=== PATIENT | male | born 1960 | race Caucasian/White ===

== ENCOUNTER → 2023-07-03 | Outpatient (CLI) | payer MEDICARE ==
--- NOTE | 2023-07-03 21:54 | CTL ---
EXAMINATION TYPE: CT Low Dose Lung DATE OF EXAM ORDERED: 07/03/2023 HISTORY: Tobacco use. Lung cancer screening CT DLP: 70 mGycm Automated exposure control for dose reduction was used. SCREENING VISIT: Initial COMPARISON: None TECHNIQUE: Low dose computed tomography scan was performed through the chest at 1 mm thick sections a nd reconstructed images in the coronal plane at [address] DIAGNOSTIC QUALITY: Satisfactory FINDINGS: LUNG NODULES: None. LUNGS: COPD: Severity: None Fibrosis: Severity: None Lymph nodes: None Other findings: None RIGHT PLEURAL SPACE: Effusion: None Calcification: None Thickening: None Pneumothorax: None LEFT PLEURAL SPACE: Effusion: None Calcification: None Thickening: None Pneumothorax: None HEART: Heart Size: Normal Coronary calcification: None Pericardial effusion: None OTHER FINDINGS: Upper abdomen: Normal Bony thorax: Normal Supraclavicular region: Normal Other: None IMPRESSION: 1. No suspicious primary or metastatic neoplasm FOLLOW UP CT CHEST RECOMMENDATION: Follow-up low-dose CT chest [address] LUNG RAD: Lung-Rad 1 Negative
== END | disposition home or self-care (01) ==
LOC: RADCTMAIN 08:46
PROVIDERS: ATTEND Internal Medicine Critical Care Medicine
DX: Z12.2 Encounter for screening for malignant neoplasm of respiratory organs (principal); F17.210 Nicotine dependence, cigarettes, uncomplicated
CPT/HCPCS: 71271

== ENCOUNTER 2023-08-27 01:20 | Inpatient (IN) | payer MEDICARE ==
[2023-08-27] MEDS: MAGNESIUM SULFATE-D5W PMX 1 GM in DEXTROSE/WATER 1 100ML.BAG IVPB STA (01:44)
[2023-08-27 01:49] LABS: Basophils # (A) 0.1 k/uL (0-0.2); Basophils % (A) 0 %; Eosinophils # (A) 0.1 k/uL (0-0.7); Eosinophils % (A) 1 %; HCT 50.8 % (39.0-53.0); Lymphocytes # (A) 2.5 k/uL (1.0-4.8); Lymphocytes % (A) 15 %; MCH 30.3 pg (25.0-35.0); MCHC 31.6 g/dL (31.0-37.0); MCV 96.1 fL (80.0-100.0); Mean Platelet Volume 9.5; Monocytes # (A) 1.2 k/uL (0-1.0); Monocytes % (A) 7 %; Neutrophils # (A) 12.8 k/uL (1.3-7.7); Neutrophils % (A) 75 %; Platelet Count 185 k/uL (150-450); RBC 5.29 m/uL (4.30-5.90); RDW 13.4 % (11.5-15.5); WBC 17.1 k/uL (3.8-10.6)
[2023-08-27] MEDS: IPRATROPIUM-ALBUTEROL 3 ML NEB INHALATION STA (01:49)
--- NOTE | 2023-08-27 01:50 | ED ---
SOB HPI - General Chief Complaint: Shortness of Breath Stated Complaint: CARMELO Time Seen by Provider: 08/27/23 01:25 Source: patient Mode of arrival: EMS Limitations: no limitations - History of Present Illness Initial Comments: 63-year-old male with past medical history of COPD who presents to the emergency department reporting shortness of breath. Patient states for the past 3 days he has been short of breath. He has been trying to tough it out. He did call his collar closer lockstitch and was placed on 40 mg of prednisone daily to help combat his symptoms. Reports that despite these efforts he still is short of breath. He denies any chest pain but does admit to tightness. Admits to a cough without sputum production. No fevers or chills. No lower extremity swelling. No history of DVT or PE. EMS found the patient with significantly diminished lung sounds and therefore placed him on a CPAP. The gave him a DuoNeb's breathing treatment and 125 mg Solu-Medrol. No other alleviating, precipitating modifying factors - Related Data Home Medications Medication Instructions Recorded Confirmed Albuterol Inhaler [Ventolin Hfa 1 puff INHALATION RT-Q4H PRN 08/27/23 08/27/23 Inhaler] Albuterol Nebulized [Ventolin 2.5 mg INHALATION RT-Q4H PRN 08/27/23 08/27/23 Nebulized] Empagliflozin [Jardiance] 10 mg PO DAILY 08/27/23 08/27/23 Ergocalciferol [Vitamin D2 (1250 1,250 mcg PO TU 08/27/23 08/27/23 Mcg = 23196 Iu)] Fluticasone/Umeclidin/Vilanter 1 puff INHALATION RT-DAILY 08/27/23 08/27/23 [Trelegy Ellipta 200-62.5-25] Ibuprofen [Motrin Ib] 200 - 400 mg PO Q6H PRN 08/27/23 08/27/23 ramipriL [Altace] 1.25 mg PO HS 08/27/23 08/27/23 Allergies Allergy/AdvReac Type Severity Reaction Status Date / Time cephalexin [From Keflex] Allergy Rash/Hives Verified 08/27/23 08:12 Review of Systems ROS Statement: Those systems with pertinent positive or pertinent negative responses have been documented in the HPI. ROS Other: All systems not noted in ROS Statement are negative. Past Medical History History of Any Multi-Drug Resistant Organisms: None Reported Past Psychological History: No Psychological Hx Reported Smoking Status: Current some day smoker Past Alcohol Use History: Rare Past Drug Use History: None Reported General Exam Limitations: no limitations General appearance: alert, in distress Head exam: Present: atraumatic, normocephalic, normal inspection Eye exam: Present: normal appearance, PERRL, EOMI. Absent: scleral icterus, conjunctival injection, periorbital swelling ENT exam: Present: normal exam, mucous membranes moist Neck exam: Present: normal inspection. Absent: tenderness, meningismus, lymphadenopathy Respiratory exam: Present: respiratory distress, wheezes, accessory muscle use, decreased breath sounds. Absent: rales, rhonchi, stridor Cardiovascular Exam: Present: normal rhythm, tachycardia, normal heart sounds. Absent: systolic murmur, diastolic murmur, rubs, gallop, clicks GI/Abdominal exam: Present: soft, normal bowel sounds. Absent: distended, tenderness, guarding, rebound, rigid Extremities exam: Present: normal inspection, full ROM, normal capillary refill. Absent: tenderness, pedal edema, joint swelling, calf tenderness Back exam: Present: normal inspection Neurological exam: Present: alert, oriented X3, CN II-XII intact Psychiatric exam: Present: normal affect, normal mood Skin exam: Present: warm, dry, intact, normal color. Absent: rash Course Vital Signs 08/27/23 08/27/23 08/27/23 01:23 01:39 01:57 Temperature 98.9 F Pulse Rate 107 H 110 H 104 H Pulse Rate [ Pulse Oximetery ] Respiratory 28 H Rate Blood Pressure 137/88 Blood Pressure [Right Arm] O2 Sat by Pulse 100 Oximetry Fraction of 40 Inspired Oxygen (FIO2) 08/27/23 08/27/23 08/27/23 03:10 03:25 04:00 Temperature 97.9 F Pulse Rate 96 93 Pulse Rate [ 86 Pulse Oximetery ] Respiratory 17 20 25 H Rate Blood Pressure 125/80 118/71 Blood Pressure 124/77 [Right Arm] O2 Sat by Pulse 98 94 L Oximetry Fraction of 40 Inspired Oxygen (FIO2) Medical Decision Making - Medical Decision Making Was pt. sent in by a medical professional or institution (, PA, DOG RACES MANAGER, urgent care, hospital, or fci...) When possible be specific @ -No Did you speak to anyone other than the patient for history (EMS, parent, family, police, friend...)? What history was obtained from this source @ -Spoke with EMS for history Did you review nursing and triage notes (agree or disagree)? Why? @ -I reviewed and agree with nursing and triage notes Were old charts reviewed (outside hosp., previous admission, EMS record, old E KG, old radiological studies, urgent care reports/EKG's, fci records)? Report findings @ -No old charts were reviewed Differential Diagnosis (chest pain, altered mental status, abdominal pain women, abdominal pain men, vaginal bleeding, weakness, fever, dyspnea, syncope, headache, dizziness, GI bleed, back pain, seizure, CVA, palpatations, mental health, musculoskeletal)? @ -Differential Dyspnea: Coronary syndrome, arrhythmia, tamponade, asthma, COPD, pulmonary embolism, pneumonia, pneumothorax, pulmonary effusion, anaphylaxis, diabetic ketoacidosis, flailed chest, pulmonary contusion, diaphragmatic rupture, anemia, neuromuscular, this is not meant to be an all-inclusive list. EKG interpreted by me (3pts min.). @ -Yes and demonstrates sinus tachycardia with a rate of 107. CO interval 155. QRS 93. QTc of 372. Significant baseline artifact. ST depression in the inferior leads. No acute ST segment elevation X-rays interpreted by me (1pt min.). @ -Yes and demonstrates no acute process CT interpreted by me (1pt min.). @ -None done U/S interpreted by me (1pt. min.). @ -None done What testing was considered but not performed or refused? (CT, X-rays, U/S, labs)? Why? @ -None What meds were considered but not given or refused? Why? @ -None Did you discuss the management of the patient with other professionals (professionals i.e. , PA, DOG RACES MANAGER, lab, RT, psych nurse, manager social responsibility, oil winterizer, teacher, court officer, case advocate)? Give summary @ -Spoke with Marva from [facility] for admission Was smoking cessation discussed for >3mins.? @ -No Was critical care preformed (if so, how long)? @ -Yes, 40 minutes for BiPAP management Were there social determinants of health that impacted care today? How? (Homelessness, low income, unemployed, alcoholism, drug addiction, transportation, low edu. Level, literacy, decrease access to med. care, fpc, rehab)? @ -No Was there de-escalation of care discussed even if they declined (Discuss DNR or withdrawal of care, Hospice)? DNR status @ -No What co-morbidities impacted this encounter? (DM, HTN, Smoking, COPD, CAD, Cancer, CVA, ARF, Chemo, Hep., AIDS, mental health diagnosis, sleep apnea, morbid obesity)? @ -COPD Was patient admitted / discharged? Hospital course, mention meds given and route, prescriptions, significant lab abnormalities, going to OR and other pertinent info. @ -Upon arrival patient seen and evaluated in trauma 1. Thorough history and physical exam was performed. IV is established. Laboratory studies are conducted. Patient is maintained on BiPAP. Chest x-ray was performed which dem onstrates no acute process. Patient given steroids and breathing treatments. Recommended admission for pulmonology consultation which the patient agreed to Undiagnosed new problem with uncertain prognosis? @ -No Drug Therapy requiring intensive monitoring for toxicity (Heparin, Nitro, Insulin, Cardizem)? @ -No Were any procedures done? @ -No Diagnosis/symptom? @ -Acute BiPAP dependent respiratory failure, acute exacerbation of COPD Acute, or Chronic, or Acute on Chronic? @ -Acute on chronic Uncomplicated (without systemic symptoms) or Complicated (systemic symptoms)? @ -Complicated Side effects of treatment? @ -No Exacerbation, Progression, or Severe Exacerbation? @ -[Yes Poses a threat to life or bodily function? How? (Chest pain, [place], AR, pneumonia, PE, COPD, DKA, ARF, appy, cholecystitis, CVA, Diverticulitis, Homicidal, Suicidal, threat to staff... and all critical care pts) @ -Yes as patient is in respiratory failure - Lab Data Result diagrams: 09/02/23 07:07 09/02/23 07:07 Lab Results 08/27/23 08/27/23 08/27/23 Range/Units 01:37 01:37 01:37 WBC 17.1 H (3.8-10.6) k/uL RBC 5.29 (4.30-5.90) m/uL Hgb 16.0 (13.0-17.5) gm/dL Hct 50.8 (39.0-53.0) % MCV 96.1 (80.0-100.0) fL MCH 30.3 (25.0-35.0) pg MCHC 31.6 (31.0-37.0) g/dL RDW 13.4 (11.5-15.5) % Plt Count 185 (150-450) k/uL MPV 9.5 Neutrophils % 75 % Lymphocytes % 15 % Monocytes % 7 % Eosinophils % 1 % Basophils % 0 % Neutrophils # 12.8 H (1.3-7.7) k/uL Lymphocytes # 2.5 (1.0-4.8) k/uL Monocytes # 1.2 H (0-1.0) k/uL Eosinophils # 0.1 (0-0.7) k/uL Basophils # 0.1 (0-0.2) k/uL PT 10.2 (10.0-12.5) sec INR 0.9 (<1.2) APTT 18.5 L (22.0-30.0) sec Sodium 139 (137-145) mmol/L Potassium 4.7 (3.5-5.1) mmol/L Chloride 107 (98-107) mmol/L Carbon Dioxide 28 (22-30) mmol/L Anion Gap 4 mmol/L BUN 15 (9-20) mg/dL Creatinine 0.63 L (0.66-1.25) mg/dL Est GFR (CKD-EPI)AfAm >90 (>60 ml/min/1.73 sqM) Est GFR (CKD-EPI)NonAf >90 (>60 ml/min/1.73 sqM) Glucose 108 H (74-99) mg/dL Plasma Lactic Acid Darryl (0.7-2.0) mmol/L Calcium 9.0 (8.4-10.2) mg/dL Total Bilirubin 0.8 (0.2-1.3) mg/dL AST 26 (17-59) U/L ALT 17 (4-49) U/L Alkaline Phosphatase 91 (38-126) U/L Troponin I (0.000-0.034) ng/mL NT-Pro-B Natriuret Pep 736 pg/mL Total Protein 6.9 (6.3-8.2) g/dL Albumin 4.3 (3.5-5.0) g/dL 08/27/23 08/27/23 Range/Units 01:37 01:37 WBC (3.8-10.6) k/uL RBC (4.30-5.90) m/uL Hgb (13.0-17.5) gm/dL Hct (39.0-53.0) % MCV (80.0-100.0) fL MCH (25.0-35.0) pg MCHC (31.0-37.0) g/dL RDW (11.5-15.5) % Plt Count (150-450) k/uL MPV Neutrophils % % Lymphocytes % % Monocytes % % Eosinophils % % Basophils % % Neutrophils # (1.3-7.7) k/uL Lymphocytes # (1.0-4.8) k/uL Monocytes # (0-1.0) k/uL Eosinophils # (0-0.7) k/uL Basophils # (0-0.2) k/uL PT (10.0-12.5) sec INR (<1.2) APTT (22.0-30.0) sec Sodium (137-145) mmol/L Potassium (3.5-5.1) mmol/L Chloride (98-107) mmol/L Carbon Dioxide (22-30) mmol/L Anion Gap mmol/L BUN (9-20) mg/dL Creatinine (0.66-1.25) mg/dL Est GFR (CKD-EPI)AfAm (>60 ml/min/1.73 sqM) Est GFR (CKD-EPI)NonAf (>60 ml/min/1.73 sqM) Glucose (74-99) mg/dL Plasma Lactic Acid Darryl 1.5 (0.7-2.0) mmol/L Calcium (8.4-10.2) mg/dL Total Bilirubin (0.2-1.3) mg/dL AST (17-59) U/L ALT (4-49) U/L Alkaline Phosphatase (38-126) U/L Troponin I <0.012 (0.000-0.034) ng/mL NT-Pro-B Natriuret Pep pg/mL Total Protein (6.3-8.2) g/dL Albumin (3.5-5.0) g/dL Disposition Clinical Impression: Acute exacerbation of chronic obstructive pulmonary disease, BiPAP (biphasic positive airway pressure) dependence, Leukocytosis Disposition: ADMITTED IP TO THIS HOSP Condition: Serious Is patient prescribed a controlled substance at d/c from ED?: No Time of Disposition: 03:19 Decision to Admit Reason: Admit from EC Decision Date: 08/27/23 Decision Time: 03:19
[2023-08-27 01:56] LABS: ALT 17 U/L (4-49); AST 26 U/L (17-59); African American GFR (CKD) >90 (>60 ml/min/1.73 sqM); Albumin 4.3 g/dL (3.5-5.0); Alkaline Phosphatase 91 U/L (38-126); Anion Gap 4 mmol/L; Blood Urea Nitrogen 15 mg/dL (9-20); Carbon Dioxide 28 mmol/L (22-30); Chloride 107 mmol/L (98-107); Glucose 108 mg/dL (74-99); Non-African American GFR(CKD) >90 (>60 ml/min/1.73 sqM); Sodium 139 mmol/L (137-145); Total Bilirubin 0.8 mg/dL (0.2-1.3); Total Protein 6.9 g/dL (6.3-8.2)
[2023-08-27 02:00] LABS: Potassium 4.7 mmol/L (3.5-5.1)
[2023-08-27 02:05] LABS: INR 0.9 (<1.2); Prothrombin Time 10.2 sec (10.0-12.5)
[2023-08-27 02:06] LABS: NT-Pro-B-Type Natriuretic Pept 736 pg/mL
[2023-08-27 02:10] LABS: Partial Thromboplastin Time 18.5 sec (22.0-30.0)
--- NOTE | 2023-08-27 03:09 | XR ---
EXAM: XR Chest, 1 View CLINICAL HISTORY: ITS.REASON XR Reason: short of breath TECHNIQUE: Frontal view of the chest. COMPARISON: No relevant prior studies available. FINDINGS: Lungs: Unremarkable. No consolidation. Pleural space: Unremarkable. No pneumothorax. Heart: Unremarkable. No cardiomegaly. Mediastinum: Unremarkable. Normal mediastinal contour. Bones/joints: Unremarkable. No acute fracture. IMPRESSION: No consolidation.
[2023-08-27] MEDS ORDERED: NALOXONE 0.4 MG/ML 1 ML VIAL IV PRN (03:20)
[2023-08-27 03:42] LABS: ABG Base Excess 1.7 mmol/L; ABG HCO3 29 mmol/L (21-25); ABG Oxygen Saturation 87.9 % (94-97); ABG PCO2 53 mmHg (35-45); ABG PH 7.34 (7.35-7.45); Allen Test Performed? Yes
[2023-08-27 03:48] LABS: ABG PO2 54 mmHg (83-108)
[2023-08-27] MEDS: IPRATROPIUM-ALBUTEROL 3 ML NEB INHALATION SCH (04:03)
--- NOTE | 2023-08-27 05:10 | P.CNPUL ---
History of Present Illness Consult date: 08/27/23 Requesting physician: Jossie Mena Reason for consult: COPD Chief complaint: Shortness of breath, cough, chest tightness History of present illness: Patient is a 63-year-old white male with past medical history significant for very severe COPD/emphysema. He recently moved to the area February,. He has recently started following in the pulmonary office with Dr. Cárdenas. PFT shows a severely reduced FEV1 22% of predicted, FEV1/FVC ratio of 33%, and DLCO of 31% not corrected for hemoglobin. He has been started on a combination of Trelegy inhaler, albuterol nebs [id number], and as needed albuterol HFA inhaler. He continues to smoke 1/2 pack/day, but is working on quitting. He has been working a lot outside, preparing for his granddaughters graduation libertarian. Over the weekend, he was having issues with progressively worsening shortness of breath, a persistent cough with minimal clear sputum production, chest tightness. Denies chest pain. He denies any fevers or recent sick contacts. Denies any nausea, vomiting, diarrhea. He was being treated outpatient with a prednisone burst taper, despite this, his breathing has progressively worsened. He called EMS early this morning, and was noted to be in some respiratory distress on arrival. In the emergency department, he was placed on BiPAP with settings 12/6 and an FiO2 of 40%. ABGs previously done on the settings show a PaO2 of 54, pCO2 of 53, pH of 7.34. Chest x-ray does not show any focal consolidations or evidence of pneumonia. There is hyperinflation consistent with COPD. CBC shows some leukocytosis, with WBC count of 17.1. CMP unremarkable. Troponins less than 0.012. NT proBNP 736. EKG reveals normal sinus rhythm and nondiagnostic for acute ischemia. Patient has just been transferred up to the selective care unit. No signs of CO2 narcosis. He remains on the BiPAP with above-mentioned settings, achieving tidal volumes of 600 and respiratory rate is currently in the mid to high 20s. He is in some mild respiratory distress with conversational dyspnea and labored breathing. SpO2 is currently reading 97%. Afebrile. Remaining vital signs are stable. Review of Systems REVIEW OF SYSTEMS: CONSTITUTIONAL: Denies any recent significant weight loss or weight gain. EYES: Denies change in vision. EARS, NOSE, MOUTH, THROAT: Denies headaches, denies sore throat. CARDIOVASCULAR: Denies chest pain, palpitations or syncopal episodes. RESPIRATORY: See HPI GASTROINTESTINAL: Admits some abdominal muscle pain with frequent coughing. Denies change in appetite, nausea and vomiting, or diarrhea GENITOURINARY: Denies hematuria, denies infections. MUSKULOSKELETAL: Denies pain, denies swelling. INTEGUMENTARY: Denies rash, denies eczema. NEUROLOGICAL: Denies recent memory loss, no recent seizure activity. PSYCHIATRIC: Denies anxiety, denies depression. HEMATOLOGIC/LYMPHATIC: Denies anemia, denies enlarged lymph node Past Medical History History of Any Multi-Drug Resistant Organisms: None Reported Past Psychological History: No Psychological Hx Reported Smoking Status: Current some day smoker Past Alcohol Use History: Rare Past Drug Use History: None Reported Medications and Allergies Home Medications Medication Instructions Recorded Confirmed Type Albuterol Inhaler [Ventolin Hfa 1 puff INHALATION RT-Q4H PRN 08/27/23 08/27/23 History Inhaler] Albuterol Nebulized [Ventolin 2.5 mg INHALATION RT-Q4H PRN 08/27/23 08/27/23 History Nebulized] Empagliflozin [Jardiance] 10 mg PO DAILY 08/27/23 08/27/23 History Ergocalciferol [Vitamin D2 (1250 1,250 mcg PO TU 08/27/23 08/27/23 History Mcg = 11339 Iu)] Fluticasone/Umeclidin/Vilanter 1 puff INHALATION RT-DAILY 08/27/23 08/27/23 History [Trelegy Ellipta 200-62.5-25] Ibuprofen [Motrin Ib] 200 - 400 mg PO Q6H PRN 08/27/23 08/27/23 History ramipriL [Altace] 1.25 mg PO HS 08/27/23 08/27/23 History Allergies Allergy/AdvReac Type Severity Reaction Status Date / Time cephalexin [From Keflex] Allergy Rash/Hives Verified 08/27/23 08:12 Physical Exam Vitals: Vital Signs Temp Pulse Resp BP Pulse Ox FiO2 08/27/23 04:03 84 40 08/27/23 03:25 93 20 118/71 94 L 08/27/23 03:10 96 17 125/80 98 08/27/23 01:57 104 H 08/27/23 01:39 110 H 40 08/27/23 01:23 98.9 F 107 H 28 H 137/88 100 Intake and Output 08/26/23 08/26/23 08/27/23 14:59 22:59 06:59 Other: Weight 70.307 kg GENERAL EXAM: Alert, 63-year-old white male, in some mild respiratory distress on BiPAP with previously mentioned settings. HEAD: Normocephalic and atraumatic EYES: Normal reaction of pupils, equal size. NOSE: Clear with pink turbinates. THROAT: No erythema or exudates. NECK: No masses, no JVD. CHEST: No chest wall deformity. LUNGS: Equal air entry with markedly diminished lung sounds throughout. On BiPAP with settings 12/6 and FiO2 of 40%. SpO2 currently 97%. Speaks in 2-3 word phrases. CVS: S1 and S2 distant with no audible murmur, regular rhythm. No extra heart sounds ABDOMEN: No hepatosplenomegaly, active bowel sounds, no guarding or rigidity. SPINE: No scoliosis or deformity SKIN: No rashes CENTRAL NERVOUS SYSTEM: No focal deficits, tone is normal in all 4 extremities. EXTREMITIES: There is no peripheral edema, clubbing, or cyanosis. Peripheral pulses are intact. Results - Laboratory Findings CBC and BMP: 08/27/23 01:37 08/27/23 01:37 ABG ABG pH 7.34 (7.35-7.45) L 08/27/23 03:29 ABG pCO2 53 mmHg (35-45) H 08/27/23 03:29 ABG pO2 54 mmHg (83-108) L* 08/27/23 03:29 ABG O2 Saturation 87.9 % (94-97) L 08/27/23 03:29 PT/INR, D-dimer PT 10.2 sec (10.0-12.5) 08/27/23 01:37 INR 0.9 (<1.2) 08/27/23 01:37 Abnormal lab findings: Abnormal Labs 08/27/23 08/27/23 08/27/23 01:37 01:37 01:37 WBC 17.1 H Neutrophils # 12.8 H Monocytes # 1.2 H APTT 18.5 L ABG pH ABG pCO2 ABG pO2 ABG HCO3 ABG O2 Saturation Creatinine 0.63 L Glucose 108 H 08/27/23 03:29 WBC Neutrophils # Monocytes # APTT ABG pH 7.34 L ABG pCO2 53 H ABG pO2 54 L* ABG HCO3 29 H ABG O2 Saturation 87.9 L Creatinine Glucose - Diagnostic Findings Chest x-ray: image reviewed Assessment and Plan Assessment: Acute COPD exacerbation, failed outpatient treatment with prednisone burst taper. Acute hypoxemic and hypercapnic respiratory failure, currently on BiPAP, secondary to above Acute leukocytosis Very severe chronic obstructive pulmonary disease, with an FEV1 22% of predicted, currently maintained on a combination of Trelegy inhaler, albuterol nebs [id number], and an as needed albuterol inhaler Chronic ongoing tobacco dependence, down to 1/2 pack/day History of hypertension Plan: Patient's medications, labs, chest x-ray reviewed Continue BiPAP for now with current settings. No signs of CO2 narcosis. Start combination of DuoNebs [id number], budesonide inhalation, formoterol inhalation, and IV Solu-Medrol Smoking cessation counseling performed. Nicotine replacement refused. Prognosis guarded. We will continue to follow I have personally seen and examined the patient, performed the documentation and the assessment and plan as written. Number of minutes spent on the visit:20 08/27/2023, the patient is being seen in the joint evaluation along with the nurse practitioner. The patient has advanced COPD and has been followed up in our office. The patient has a patient FEV1 of 22% of predicted and the patient has been smoking on half pack of cigarettes a day. He has been maintained on Trelegy Ellipta on outpatient basis. He comes into the hospital because of worsening shortness of breath. He currently is on a BiPAP at a pressure of 12 over 6 cm of water and despite that, he continues to have some increased minute ventilation. He is still bronchospastic and wheezy. His chest x-ray shows no evidence of any pneumonia. Rest of the blood work shows no significant abnormalities. Nevertheless, his blood gas was abnormal as the patient had an acute hypercapnic respiratory failure and hypoxemic respiratory failure and this was on FiO2 of 40%. The patient will be kept on the BiPAP throughout the day for today. Will be kept on bronchodilators with DuoNeb updrafts. Will be kept on Pulmicort and Perforomist nebulized treatments. On going to empirically add Levaquin 750 mg every 24 hours for the possibility of underlying bronchitis. The patient will be given Mucinex DM 2 tablets twice a day. Lovenox for DVT prophylaxis. Xanax 0.5 mg twice a day and as needed for increased anxiety. Discussed CODE STATUS with him. He is not sure if he wants to be intubated. The is not favoring intubation if needed. A final decision has not been made yet and this is still being to be discussed over the next 24 hours. This evaluation was done more than 30 minutes. Time with Patient: Greater than 30
[2023-08-27] MEDS: methylPREDNISolone SOD SUCCI 40 MG/ML 1 ML VIAL IV SCH (07:50)
[2023-08-27] MEDS: BUDESONIDE 1 MG/2 ML NEBU INHALATION SCH (09:05)
[2023-08-27] MEDS: FORMOTEROL FUMARATE 20 MCG/2 ML NEBU INHALATION SCH (09:05)
[2023-08-27] MEDS ORDERED: ALPRAZolam 0.5 MG TAB PO PRN (10:40)
[2023-08-27] MEDS: methylPREDNISolone SOD SUCCI 125 MG/2 ML VIAL IV SCH (11:14)
[2023-08-27] MEDS: ALPRAZolam 0.5 MG TAB PO SCH (11:14)
[2023-08-27] MEDS: ENOXAPARIN 30 MG/0.3 ML SYRINGE SQ SCH (11:15)
[2023-08-27] MEDS: guaiFENesin-DM 600/30MG 1 EACH TAB.ER.12H PO SCH (11:15)
[2023-08-27] MEDS: LEVOFLOXACIN 750MG-D5W PMX 750 MG in DEXTROSE/WATER 1 150ML.BAG IVPB SCH (11:15)
--- NOTE | 2023-08-27 18:56 | P.HPIM ---
History of Present Illness H&P Date: 08/27/23 Chief Complaint: Shortness of breath Patient is a 63-year-old male with a past medical history of COPD/emphysema with FEV1 of 22% of predicted presents to ER with complaints of worsening shortness of breath for the past 1 to 2 days. Patient has been working outside and is e xposed to pollen and cotton wood which made his breathing much worse. Patient was having cough with whitish to light yellow sputum production. She was also complaining of chest tightness. Denies any fever or chills. Denies any recent illnesses. No sick contacts. Patient was treated as an outpatient with prednisone burst taper despite this breathing is progressively getting worse which made him come to ER. Patient was tachycardic and tachypneic and requiring BiPAP on admission. ABG showed pH 7.34 pCO2 53 and pO2 54. EKG showed sinus tachycardia, chest x-ray showed no consolidation. Laboratory test showed WBC 17.1 hemoglobin 16.0 and platelets 185 sodium 139 potassium 4.7 chloride 107 bicarb is 28 BUN 15 and creatinine 0.63 and blood sugar 108 liver enzymes are not elevated troponin x 3 negative and proBNP 736. Influenza A B RSV and COVID-19 PCR not detected. Patient remains on BiPAP and is currently awake alert and oriented x 3. Review of Systems Constitutional: Patient denies any fever or chills . No generalized weakness or weight loss. Abdomen: Patient denied nausea vomiting and diarrhea and abdominal pain. Cardiovascular: Patient denies any chest pain. Positive for short of breath no palpitations. No leg swelling. Respiratory: Patient does have cough with whitish sputum production and shortness of breath Neurologic: Patient denied any numbness or tingling. no headache. Musculoskeletal: Patient denies any complaints of joint swelling or deformity. Skin: Negative Psychiatric: Negative Endocrine: No heat or cold intolerance. No recent weight gain. Genitourinary: No dysuria or hematuria. All other 14 point ROS negative except the above Past Medical History Past Medical History: COPD History of Any Multi-Drug Resistant Organisms: None Reported Past Surgical History: Cholecystectomy, Hernia Repair Additional Past Surgical History / Comment(s): ezequiel in 2021 and hernia 2023 Past Anesthesia/Blood Transfusion Reactions: No Reported Reaction Past Psychological History: No Psychological Hx Reported Smoking Status: Current some day smoker Past Alcohol Use History: Rare Past Drug Use History: None Reported Medications and Allergies Home Medications Medication Instructions Recorded Confirmed Type Albuterol Inhaler [Ventolin Hfa 1 puff INHALATION RT-Q4H PRN 08/27/23 08/27/23 History Inhaler] Albuterol Nebulized [Ventolin 2.5 mg INHALATION RT-Q4H PRN 08/27/23 08/27/23 History Nebulized] Empagliflozin [Jardiance] 10 mg PO DAILY 08/27/23 08/27/23 History Ergocalciferol [Vitamin D2 (1250 1,250 mcg PO TU 08/27/23 08/27/23 History Mcg = 72130 Iu)] Fluticasone/Umeclidin/Vilanter 1 puff INHALATION RT-DAILY 08/27/23 08/27/23 History [Trelegy Ellipta 200-62.5-25] Ibuprofen [Motrin Ib] 200 - 400 mg PO Q6H PRN 08/27/23 08/27/23 History ramipriL [Altace] 1.25 mg PO HS 08/27/23 08/27/23 History Allergies Allergy/AdvReac Type Severity Reaction Status Date / Time cephalexin [From Keflex] Allergy Rash/Hives Verified 08/27/23 08:12 Physical Exam Vitals: Vital Signs Temp Pulse Pulse Resp BP BP Pulse Ox 08/27/23 09:27 84 08/27/23 09:14 80 08/27/23 09:05 85 95 08/27/23 07:48 97.9 F 79 18 123/64 99 08/27/23 04:03 84 08/27/23 04:00 97.9 F 86 25 H 124/77 08/27/23 03:25 93 20 118/71 94 L 08/27/23 03:10 96 17 125/80 98 08/27/23 01:57 104 H 08/27/23 01:39 110 H 08/27/23 01:23 98.9 F 107 H 28 H 137/88 100 FiO2 08/27/23 09:27 40 08/27/23 09:14 08/27/23 09:05 08/27/23 07:48 08/27/23 04:03 40 08/27/23 04:00 40 08/27/23 03:25 08/27/23 03:10 08/27/23 01:57 08/27/23 01:39 40 08/27/23 01:23 Intake and Output 08/26/23 08/27/23 08/27/23 22:59 06:59 14:59 Intake Total 118 Balance 118 Intake: Oral 118 Other: Voiding Method Urinal # Voids 1 Weight 58 kg PHYSICAL EXAMINATION: Patient is lying in the bed, acute distress, awake alert and oriented. On BiPAP.. HEENT: Normocephalic. Neck is supple. Pupils reactive. Nostrils clear. Oral cavity is moist. Neck reveals no JVD, carotid bruits, or thyromegaly. CHEST EXAMINATION: Trachea is central. Symmetrical expansion. Bilateral diminished air entry and prolonged expiration. Minimal wheezing. No crackles. CARDIAC: Normal S1, S2 with no gallops. No murmurs ABDOMEN: Soft. Bowel sounds normal. No organomegaly. No abdominal bruits. Extremities: reveal no edema. No clubbing or cyanosis Neurologically awake, alert, oriented x3 with well-coordinated movements. No focal deficits noted Skin: No rash or skin lesions. Psychiatric: Coperative. Nonsuicidal, anxious. Musculoskeletal: No joint swelling or deformity. Normal range of motion. Results CBC & Chem 7: 08/27/23 01:37 08/27/23 01:37 Labs: Abnormal Lab Results - Last 24 Hours (Table) 08/27/23 08/27/23 08/27/23 Range/Units 01:37 01:37 01:37 WBC 17.1 H (3.8-10.6) k/uL Neutrophils # 12.8 H (1.3-7.7) k/uL Monocytes # 1.2 H (0-1.0) k/uL APTT 18.5 L (22.0-30.0) sec ABG pH (7.35-7.45) ABG pCO2 (35-45) mmHg ABG pO2 (83-108) mmHg ABG HCO3 (21-25) mmol/L ABG O2 Saturation (94-97) % Creatinine 0.63 L (0.66-1.25) mg/dL Glucose 108 H (74-99) mg/dL 08/27/23 Range/Units 03:29 WBC (3.8-10.6) k/uL Neutrophils # (1.3-7.7) k/uL Monocytes # (0-1.0) k/uL APTT (22.0-30.0) sec ABG pH 7.34 L (7.35-7.45) ABG pCO2 53 H (35-45) mmHg ABG pO2 54 L* (83-108) mmHg ABG HCO3 29 H (21-25) mmol/L ABG O2 Saturation 87.9 L (94-97) % Creatinine (0.66-1.25) mg/dL Glucose (74-99) mg/dL Thrombosis Risk Factor Assmnt - DVT/VTE Prophylaxis DVT/VTE Prophylaxis: Pharmacologic Prophylaxis ordered - Choose All That Apply Any of the Below Risk Factors Present?: Yes Each Factor Represents 1 point: Abnormal pulmonary function (COPD) Other Risk Factors: Yes Each Risk Factor Represents 2 Points: Age 61-74 years Other congenital or acquired thrombophilia - If yes, enter type in comment: No Thrombosis Risk Factor Assessment Total Risk Factor Score: 3 Thrombosis Risk Factor Assessment Level: Moderate Risk Assessment and Plan Assessment: Shortness of breath secondary to acute COPD exacerbation and failed outpatient prednisone burst taper. Acute hypoxic and hypercapnic respiratory failure requiring BiPAP currently Leukocytosis likely due to recent steroid use Severe COPD/emphysema with FEV1 of 22% of predicted. Ongoing nicotine addiction/smoking DVT prophylaxis with Lovenox subcu Plan: Continue with BiPAP and titrate down to nasal cannula oxygen. Patient will be continued on IV Solu-Medrol 60 mg every 6 hourly. Continue with DuoNebs every 4 hourly and Pulmicort and Perforomist was added. Pulmonary is on board. Symptomatic management for cough. Patient was also started on antibiotics of Levaquin and follow-up sputum cultures. Discussed with the patient and his at bedside in detail. patient has been counseled. Continue to follow closely. Time with Patient: Greater than 30
[2023-08-27] MEDS: lisinopriL 5 MG TAB PO SCH (21:17)
[2023-08-28 08:43] LABS: Basophils % (A) 0 %; Eosinophils % (A) 0 %; HCT 46.6 % (39.0-53.0); HGB 14.4 gm/dL (13.0-17.5); Lymphocytes % (A) 7 %; MCH 29.6 pg (25.0-35.0); MCHC 30.9 g/dL (31.0-37.0); MCV 95.9 fL (80.0-100.0); Mean Platelet Volume 9.8; Monocytes # (A) 0.8 k/uL (0-1.0); Monocytes % (A) 6 %; Neutrophils # (A) 11.6 k/uL (1.3-7.7); Neutrophils % (A) 86 %; Platelet Count 172 k/uL (150-450); RBC 4.86 m/uL (4.30-5.90); RDW 13.6 % (11.5-15.5); WBC 13.5 k/uL (3.8-10.6)
[2023-08-28 09:12] LABS: African American GFR (CKD) >90 (>60 ml/min/1.73 sqM); Anion Gap 2 mmol/L; Blood Urea Nitrogen 23 mg/dL (9-20); Calcium 9.4 mg/dL (8.4-10.2); Carbon Dioxide 31 mmol/L (22-30); Chloride 105 mmol/L (98-107); Glucose 129 mg/dL (74-99); Non-African American GFR(CKD) >90 (>60 ml/min/1.73 sqM); Potassium 4.9 mmol/L (3.5-5.1); Sodium 138 mmol/L (137-145)
[2023-08-28] MEDS: DAPAGLIFLOZIN PROPANEDIOL 5 MG TABLET PO SCH (09:14)
--- NOTE | 2023-08-28 14:46 | P.PN ---
Subjective Progress Note Date: 08/28/23 Patient is a 63-year-old white male with past medical history significant for very severe COPD/emphysema. He recently moved to the area February,. He has recently started following in the pulmonary office with Dr. Cárdenas. PFT shows a severely reduced FEV1 22% of predicted, FEV1/FVC ratio of 33%, and DLCO of 31% not corrected for hemoglobin. He has been started on a combination of Trelegy inhaler, albuterol nebs [id number], and as needed albuterol HFA inhaler. He continues to smoke 1/2 pack/day, but is working on quitting. He has been working a lot outside, preparing for his granddaughters graduation alliance party. Over the weekend, he was having issues with progressively worsening shortness of breath, a persistent cough with minimal clear sputum production, chest tightness. Denies chest pain. He denies any fevers or recent sick contacts. Denies any nausea, vomiting, diarrhea. He was being treated outpatient with a prednisone burst taper, despite this, his breathing has progressively worsened. He called EMS early this morning, and was noted to be in some respiratory distress on arrival. In the emergency department, he was placed on BiPAP with settings 12/6 and an FiO2 of 40%. ABGs previously done on the settings show a PaO2 of 54, pCO2 of 53, pH of 7.34. Chest x-ray does not show any focal consolidations or evidence of pneumonia. There is hyperinflation consistent with COPD. CBC shows some leukocytosis, with WBC count of 17.1. CMP unremarkable. Troponins less than 0.012. NT proBNP 736. EKG reveals normal sinus rhythm and nondiagnostic for acute ischemia. Patient has just been transferred up to the selective care unit. No signs of CO2 narcosis. He remain s on the BiPAP with above-mentioned settings, achieving tidal volumes of 600 and respiratory rate is currently in the mid to high 20s. He is in some mild respiratory distress with conversational dyspnea and labored breathing. SpO2 is currently reading 97%. Afebrile. Remaining vital signs are stable. On today's evaluation 08/28/2023, the patient is feeling better. Less short of breath. The patient is off BiPAP. Communicating. No signs of any CO2 narcosis. No chest pain. Has a congested cough, unable to bring up much sputum. The white cell count of 15.4 with a hemoglobin 14.4 and platelet count of 172. BUN is 23 with a creatinine of 0.6 and a sodium levels of 138. Objective - Vital Signs Vital signs: Vital Signs Temp 97.4 F L 08/28/23 04:00 Pulse 91 08/28/23 09:12 Resp 18 08/28/23 09:12 BP 113/64 08/28/23 09:12 Pulse Ox 97 08/28/23 09:12 FiO2 40 08/28/23 04:00 Intake & Output 08/27/23 08/28/23 08/28/23 18:59 06:59 18:59 Intake Total 894 0 118 Balance 894 0 118 Intake: Oral 894 0 118 Other: Voiding Method Urinal Urinal Urinal # Voids 1 0 # Bowel Movements 0 - Exam GENERAL EXAM: Alert, 63-year-old white male,, comfortable on 2 L of oxygen by nasal cannula HEAD: Normocephalic and atraumatic EYES: Normal reaction of pupils, equal size. NOSE: Clear with pink turbinates. THROAT: No erythema or exudates. NECK: No masses, no JVD. CHEST: No chest wall deformity. LUNGS: Equal air entry with markedly diminished lung sounds throughout. CVS: S1 and S2 distant with no audible murmur, regular rhythm. No extra heart sounds ABDOMEN: No hepatosplenomegaly, active bowel sounds, no guarding or rigidity. SPINE: No scoliosis or deformity SKIN: No rashes CENTRAL NERVOUS SYSTEM: No focal deficits, tone is normal in all 4 extremities. EXTREMITIES: There is no peripheral edema, clubbing, or cyanosis. Peripheral pulses are intact. - Labs CBC & Chem 7: 08/28/23 07:52 08/28/23 07:52 Labs: Abnormal Lab Results - Last 24 Hours (Table) 08/28/23 08/28/23 Range/Units 07:52 07:52 WBC 13.5 H (3.8-10.6) k/uL MCHC 30.9 L (31.0-37.0) g/dL Neutrophils # 11.6 H (1.3-7.7) k/uL Carbon Dioxide 31 H (22-30) mmol/L BUN 23 H (9-20) mg/dL Creatinine 0.65 L (0.66-1.25) mg/dL Glucose 129 H (74-99) mg/dL Assessment and Plan Assessment: Acute COPD exacerbation, failed outpatient treatment with prednisone burst taper. Clinically improving and the patient is currently off the BiPAP and he is on 2 L of oxygen by nasal cannula. Acute hypoxemic and hypercapnic respiratory failure, currently off the BiPAP. Patient is like the BiPAP for the past 24 hours. Acute leukocytosis Very severe chronic obstructive pulmonary disease, with an FEV1 22% of predicted , currently maintained on a combination of Trelegy inhaler, albuterol nebs [id number], and an as needed albuterol inhaler Chronic ongoing tobacco dependence, down to 1/2 pack/day History of hypertension Plan: Oxygen 2 L/min nasal cannula Continue DuoNebs uosesg-voc-htwab, budesonide inhalation, formoterol inhalation Continue IV Solu-Medrol Continue to lysing BiPAP on and off during the day as needed and overnight if needed. Smoking cessation counseling performed. Nicotine replacement refused. Continue Levaquin 750 mg every 24 hours for the possibility of underlying bronchitis. The patient will be given Mucinex DM 2 tablets twice a day. Lovenox for DVT prophylaxis. Xanax 0.5 mg twice a day and as needed for increased anxiety. Discussed CODE STATUS with him. He is not sure if he wants to be intubated. The is not favoring intubation if needed. A final decision has not been made yet and this is still being to be discussed over the next 24 hours.
--- NOTE | 2023-08-29 05:12 | P.PN ---
Subjective Progress Note Date: 08/28/23 Patient is a 63-year-old male with a past medical history of COPD/emphysema with FEV1 of 22% of predicted presents to ER with complaints of worsening shortness of breath for the past 1 to 2 days. Patient has been working outside and is exposed to pollen and cotton wood which made his breathing much worse. Patient was having cough with whitish to light yellow sputum production. She was also complaining of chest tightness. Denies any fever or chills. Denies any recent illnesses. No sick contacts. Patient was treated as an outpatient with prednisone burst taper despite this breathing is progressively getting worse which made him come to ER. Patient was tachycardic and tachypneic and requiring BiPAP on admission. ABG showed pH 7.34 pCO2 53 and pO2 54. EKG showed sinus tachycardia, chest x-ray showed no consolidation. Laboratory test showed WBC 17.1 hemoglobin 16.0 and platelets 185 sodium 139 potassium 4.7 chloride 107 bicarb is 28 BUN 15 and creatinine 0.63 and blood sugar 108 liver enzymes are not elevated troponin x 3 negative and proBNP 736. Influenza A B RSV and COVID-19 PCR not detected. Patient remains on BiPAP and is currently awake alert and oriented x 3. 08/28/2023 Patient is seen in follow-up today continues on IV steroids along with breathing treatments with pulmonary following closely. Patient used BiPAP last night and is maintained on 3 L. Patient does not wear oxygen outpatient. Patient is maintained on empiric antibiotics.. Patient continues with significant dyspnea on minimal exertion including moving around and repositioning in the bed. Patient is afebrile denies chest pain or palpitations. Patient reports to feeling better than when first arriving. Encouraged to increase activity as tolerated once respiratory status improves. Review of systems: Constitutional: No reports of fatigue, fever, or chills Cardiovascular: No reports of chest pain or palpitations Respiratory: reports of continued shortness of breath with minimal exertion, occasional cough with some phlegm GI: No reports of nausea, vomiting, or diarrhea : No reports of dysuria or retention Neurovascular: No reports of weakness or numbness All medications have been reviewed Physical exam: Patient is sitting up in the bed, maintained on 3 L via nasal cannula, awake alert and oriented x 3. Well-developed, ill-appearing, elderly appearing HEENT: Normocephalic. Neck is supple. Pupils reactive. Nostrils clear. Oral cavity is moist. Neck reveals no JVD, carotid bruits, or thyromegaly. CHEST EXAMINATION: Trachea is central. Symmetrical expansion. Bilateral diminished air entry and prolonged expiration. Minimal wheezing. No crackles. CARDIAC: Normal S1, S2 with no gallops. No murmurs ABDOMEN: Soft. Bowel sounds normal. No organomegaly. No abdominal bruits. Extremities: reveal no edema. No clubbing or cyanosis Neurologically awake, alert, oriented x3 with well-coordinated movements. No focal deficits noted Skin: No rash or skin lesions. Psychiatric: Cooperative. Nonsuicidal, anxious. Musculoskeletal: No joint swelling or deformity. Normal range of motion. Assessment: Shortness of breath secondary to acute COPD exacerbation and failed outpatient prednisone burst taper. Acute hypoxic and hypercapnic respiratory failure requiring BiPAP on admission, currently on 3 L Leukocytosis likely due to recent steroid use Severe COPD/emphysema with FEV1 of 22% of predicted. Ongoing nicotine addiction/smoking DVT prophylaxis with Lovenox subcu GI prophylaxis Full code Plan: Patient was continued on BiPAP and weaning, currently on 3 L via nasal cannula. Patient is continued on IV steroids along with [id number] breathing treatments and pulmonary following Patient will continue on antibiotics empirically in the form of Levaquin and sputum cultures are pending. Uncollected at this time. Encouraged to increase activity as tolerated once respiratory status improves, encouraged oral intake Due to multiple complex medical issues, prognosis is guarded The impression and plan of care has been dictated by Marva Klein Nurse Pr actitioner as directed. Dr. Kenya MD I have performed a history and examination and MDM of this patient, discussed the same with the dictator, and agree with the dictator's assessment and plan as written ,documented as a scribe. Based on total visit time, I have performed more than 50% of the visit. Objective - Vital Signs Vital signs: Vital Signs Temp 97.4 F L 08/28/23 04:00 Pulse 91 08/28/23 09:12 Resp 18 08/28/23 09:12 BP 113/64 08/28/23 09:12 Pulse Ox 97 08/28/23 09:12 FiO2 40 08/28/23 04:00 Intake & Output 06/11/24 06/12/24 06/12/24 18:59 06:59 18:59 Intake Total 894 0 Balance 894 0 Intake: Oral 894 0 Other: Voiding Method Urinal Urinal # Voids 1 0 # Bowel Movements 0 - Labs CBC & Chem 7: 08/28/23 07:52 08/28/23 07:52 Labs: Abnormal Lab Results - Last 24 Hours (Table) 08/28/23 08/28/23 Range/Units 07:52 07:52 WBC 13.5 H (3.8-10.6) k/uL MCHC 30.9 L (31.0-37.0) g/dL Neutrophils # 11.6 H (1.3-7.7) k/uL Carbon Dioxide 31 H (22-30) mmol/L BUN 23 H (9-20) mg/dL Creatinine 0.65 L (0.66-1.25) mg/dL Glucose 129 H (74-99) mg/dL
[2023-08-29] MEDS: ENOXAPARIN 40 MG/0.4 ML SYRINGE SQ SCH (09:13)
[2023-08-29] MEDS: LEVOFLOXACIN 750 MG TAB PO SCH (09:13)
--- NOTE | 2023-08-29 22:54 | P.PN ---
Subjective Progress Note Date: 08/29/23 Patient is a 63-year-old white male with past medical history significant for very severe COPD/emphysema. He recently moved to the area February,. He has recently started following in the pulmonary office with Dr. Cárdenas. PFT shows a severely reduced FEV1 22% of predicted, FEV1/FVC ratio of 33%, and DLCO of 31% not corrected for hemoglobin. He has been started on a combination of Trelegy inhaler, albuterol nebs [id number], and as needed albuterol HFA inhaler. He continues to smoke 1/2 pack/day, but is working on quitting. He has been working a lot outside, preparing for his granddaughters graduation constitution party. Over the weekend, he was having issues with progressively worsening shortness of breath, a persistent cough with minimal clear sputum production, chest tightness. Denies chest pain. He denies any fevers or recent sick contacts. Denies any nausea, vomiting, diarrhea. He was being treated outpatient with a prednisone burst taper, despite this, his breathing has progressively worsened. He called EMS early this morning, and was noted to be in some respiratory distress on arrival. In the emergency department, he was placed on BiPAP with settings 12/6 and an FiO2 of 40%. ABGs previously done on the settings show a PaO2 of 54, pCO2 of 53, pH of 7.34. Chest x-ray does not show any focal consolidations or evidence of pneumonia. There is hyperinflation consistent with COPD. CBC shows some leukocytosis, with WBC count of 17.1. CMP unremarkable. Troponins less than 0.012. NT proBNP 736. EKG reveals normal sinus rhythm and nondiagnostic for acute ischemia. Patient has just been transferred up to the selective care unit. No signs of CO2 narcosis. He remain s on the BiPAP with above-mentioned settings, achieving tidal volumes of 600 and respiratory rate is currently in the mid to high 20s. He is in some mild respiratory distress with conversational dyspnea and labored breathing. SpO2 is currently reading 97%. Afebrile. Remaining vital signs are stable. On today's evaluation 08/28/2023, the patient is feeling better. Less short of breath. The patient is off BiPAP. Communicating. No signs of any CO2 narcosis. No chest pain. Has a congested cough, unable to bring up much sputum. The white cell count of 15.4 with a hemoglobin 14.4 and platelet count of 172. BUN is 23 with a creatinine of 0.6 and a sodium levels of 138. 08/29/2023, the patient continues to be short of breath and is utilizing the BiPAP for respiratory support. The patient at the time of my evaluation was placed back on BiPAP at a pressure of 12 over 6 cm of water. He is tolerating the BiPAP reasonably well. No chest pain. No altered mentation. No hemoptysis or pleurisy. Remains on DuoNeb nebulized treatments [id number]. Remains on Perforomist and Pulmicort TWICE a day, empiric antibiotic coverage with Levaquin and he remains on IV Solu-Medrol. He remains on Lovenox for DVT prophylaxis. No new labs are available from today. A follow-up chest x-ray to be obtained for tomorrow. Otherwise, no new complaints. Objective - Vital Signs Vital signs: Vital Signs Temp 98.1 F 08/29/23 09:01 Pulse 90 08/29/23 09:01 Resp 22 08/29/23 09:01 BP 125/60 08/29/23 09:01 Pulse Ox 95 08/29/23 09:01 FiO2 40 08/29/23 09:23 Intake & Output 08/28/23 08/29/23 08/29/23 18:59 06:59 18:59 Intake Total 476 118 Balance 476 118 Intake: Oral 476 118 Other: Voiding Method Urinal Urinal # Voids 2 2 1 - Exam GENERAL EXAM: Alert, 63-year-old white male,, comfortable on 2 L of oxygen by nasal cannula and is alternating between nasal cannula with BiPAP for respiratory support. HEAD: Normocephalic and atraumatic EYES: Normal reaction of pupils, equal size. NOSE: Clear with pink turbinates. THROAT: No erythema or exudates. NECK: No masses, no JVD. CHEST: No chest wall deformity. LUNGS: Equal air entry with markedly diminished lung sounds throughout. CVS: S1 and S2 distant with no audible murmur, regular rhythm. No extra heart sounds ABDOMEN: No hepatosplenomegaly, active bowel sounds, no guarding or rigidity. SPINE: No scoliosis or deformity SKIN: No rashes CENTRAL NERVOUS SYSTEM: No focal deficits, tone is normal in all 4 extremities. EXTREMITIES: There is no peripheral edema, clubbing, or cyanosis. Peripheral pulses are intact. - Labs CBC & Chem 7: 08/28/23 07:52 08/28/23 07:52 Assessment and Plan Assessment: Acute COPD exacerbation, failed outpatient treatment with prednisone burst taper. Clinically improving and the patient is currently still using the BiPAP for respiratory support and while off the BiPAP, the patient utilizing nasal cannula. Still short of breath, still bronchospastic and wheezy, not fully recovered from his underlying COPD exacerbation. Unable to liberate completely from BiPAP therapy for respiratory support. Acute hypoxemic and hypercapnic respiratory failure, secondary to above Acute leukocytosis Very severe chronic obstructive pulmonary disease, with an FEV1 22% of predicted, currently maintained on a combination of Trelegy inhaler, albuterol nebs [id number], and an as needed albuterol inhaler Chronic ongoing tobacco dependence, down to 1/2 pack/day History of hypertension Plan: Oxygen 2 L/min nasal cannula, the patient is alternate nasal cannula with BiPAP on and off for several hours during the day and continuously at nighttime. Continue DuoNebs phlxdy-dry-[id number], budesonide inhalation, formoterol inhalation Continue IV Solu-Medrol Repeat chest x-ray in the morning Smoking cessation counseling performed. Nicotine replacement refused. Continue Levaquin 750 mg every 24 hours for the possibility of underlying bronchitis. The patient will be given Mucinex DM 2 tablets twice a day. Lovenox for DVT prophylaxis. Xanax 0.5 mg twice a day and as needed for increased anxiety. Discussed CODE STATUS with him. Remains full code for the time being.
--- NOTE | 2023-08-30 05:49 | P.PN ---
Subjective Progress Note Date: 08/29/23 Patient is a 63-year-old male with a past medical history of COPD/emphysema with FEV1 of 22% of predicted presents to ER with complaints of worsening shortness of breath for the past 1 to 2 days. Patient has been working outside and is exposed to pollen and cotton wood which made his breathing much worse. Patient was having cough with whitish to light yellow sputum production. She was also complaining of chest tightness. Denies any fever or chills. Denies any recent illnesses. No sick contacts. Patient was treated as an outpatient with prednisone burst taper despite this breathing is progressively getting worse which made him come to ER. Patient was tachycardic and tachypneic and requiring BiPAP on admission. ABG showed pH 7.34 pCO2 53 and pO2 54. EKG showed sinus tachycardia, chest x-ray showed no consolidation. Laboratory test showed WBC 17.1 hemoglobin 16.0 and platelets 185 sodium 139 potassium 4.7 chloride 107 bicarb is 28 BUN 15 and creatinine 0.63 and blood sugar 108 liver enzymes are not elevated troponin x 3 negative and proBNP 736. Influenza A B RSV and COVID-19 PCR not detected. Patient remains on BiPAP and is currently awake alert and oriented x 3. 08/28/2023 Patient is seen in follow-up today continues on IV steroids along with breathing treatments with pulmonary following closely. Patient used BiPAP last night and is maintained on 3 L. Patient does not wear oxygen outpatient. Patient is maintained on empiric antibiotics.. Patient continues with significant dyspnea on minimal exertion including moving around and repositioning in the bed. Patient is afebrile denies chest pain or palpitations. Patient reports to feeling better than when first arriving. Encouraged to increase activity as tolerated once respiratory status improves. 08/29/2023 Patient is seen in follow up today with pulmonary following intermittently using BiPAP and maintained on 3 L via nasal cannula. Patient reports he feels somewhat improved although continues to be extremely dyspneic on minimal exertion. Patient will continue on DuoNebs and IV steroids. Discussed with pat ient and family about increased activity and walking more frequently even if just in the room with extra tubing. Patient is getting up to take a shower today. Patient is afebrile with no reports of chest pain or palpitations. Patient does continue to report shortness of breath but feels improved since admission. No reported nausea or vomiting and patient is tolerating diet Review of systems: Constitutional: No reports of fatigue, fever, or chills Cardiovascular: No reports of chest pain or palpitations Respiratory: reports of continued shortness of breath with minimal exertion, occasional cough with some phlegm GI: No reports of nausea, vomiting, or diarrhea : No reports of dysuria or retention Neurovascular: No reports of weakness or numbness All medications have been reviewed Physical exam: Patient is sitting up in the bed, maintained on 3 L via nasal cannula, awake alert and oriented x 3. Well-developed, ill-appearing, elderly appearing HEENT: Normocephalic. Neck is supple. Pupils reactive. Nostrils clear. Oral cavity is moist. Neck reveals no JVD, carotid bruits, or thyromegaly. CHEST EXAMINATION: Trachea is central. Symmetrical expansion. Bilateral diminished air entry and prolonged expiration. Minimal wheezing. No crackles. Improved aeration today CARDIAC: Normal S1, S2 with no gallops. No murmurs ABDOMEN: Soft. Bowel sounds normal. No organomegaly. No abdominal bruits. Extremities: reveal no edema. No clubbing or cyanosis Neurologically awake, alert, oriented x3 with well-coordinated movements. No focal deficits noted Skin: No rash or skin lesions. Psychiatric: Cooperative. Nonsuicidal, anxious. Musculoskeletal: No joint swelling or deformity. Normal range of motion. Assessment: Shortness of breath secondary to acute COPD exacerbation and failed outpatient prednisone burst taper. Acute hypoxic and hypercapnic respiratory failure requiring BiPAP on admission, currently on 3 L with intermittent BiPAP use Leukocytosis likely due to recent steroid use Severe COPD/emphysema with FEV1 of 22% of predicted. Ongoing nicotine addiction/smoking DVT prophylaxis with Lovenox subcu GI prophylaxis Full code Plan: Patient was continued on BiPAP and weaning, currently on 3 L via nasal cannula. Patient is continued on IV steroids along with [id number]-[id number] breathing treatments and pulmonary following. Intermittently using BiPAP Patient will continue on antibiotics empirically in the form of Levaquin and sputum cultures are pending. Uncollected at this time. Encouraged to increase activity as tolerated once respiratory status improves, encouraged oral intake Due to multiple complex medical issues, prognosis is guarded The impression and plan of care has been dictated by Marva Klein, Nurse Practitioner as directed. Dr. Kenya MD I have performed a history and examination and MDM of this patient, discussed th e same with the dictator, and agree with the dictator's assessment and plan as written ,documented as a scribe. Based on total visit time, I have performed more than 50% of the visit. Objective - Vital Signs Vital signs: Vital Signs Temp 98.2 F 08/29/23 23:17 Pulse 80 08/30/23 05:04 Resp 18 08/29/23 23:17 BP 115/65 08/29/23 23:17 Pulse Ox 97 08/29/23 23:17 FiO2 40 08/29/23 09:23 Intake & Output 08/29/23 08/29/23 08/30/23 06:59 18:59 06:59 Intake Total 592 Balance 592 Intake: Oral 592 Other: Voiding Method Urinal Urinal Urinal # Voids 2 3 2 # Bowel Movements 1 - Labs CBC & Chem 7: 08/28/23 07:52 08/28/23 07:52
--- NOTE | 2023-08-30 13:36 | XR ---
EXAMINATION TYPE: XR chest 1V DATE OF EXAM: 08/30/2023 HISTORY: Shortness of breath. COMPARISON: 08/27/2023 TECHNIQUE: Single view of the chest is submitted. FINDINGS: Demonstrated are scattered senescent parenchymal change. There is no evidence for focal infiltrate. The heart is stable. Hilar and mediastinal structures are within normal limits. Degenerative changes are seen of the dorsal spine. IMPRESSION: 1. Chronic changes without evidence for acute pulmonary disease.
[2023-08-30 13:39] LABS: African American GFR (CKD) >90 (>60 ml/min/1.73 sqM); Anion Gap 0 mmol/L; Blood Urea Nitrogen 29 mg/dL (9-20); Calcium 9.3 mg/dL (8.4-10.2); Carbon Dioxide 36 mmol/L (22-30); Chloride 99 mmol/L (98-107); Glucose 114 mg/dL (74-99); Non-African American GFR(CKD) >90 (>60 ml/min/1.73 sqM); Potassium 4.8 mmol/L (3.5-5.1); Sodium 135 mmol/L (137-145)
[2023-08-30] MEDS: FUROSEMIDE 10 MG/ML 4 ML VIAL IV STA (13:53)
--- NOTE | 2023-08-30 16:23 | P.PN ---
Subjective Progress Note Date: 08/30/23 Patient is a 63-year-old white male with past medical history significant for very severe COPD/emphysema. He recently moved to the area February,. He has recently started following in the pulmonary office with Dr. Cárdenas. PFT shows a severely reduced FEV1 22% of predicted, FEV1/FVC ratio of 33%, and DLCO of 31% not corrected for hemoglobin. He has been started on a combination of Trelegy inhaler, albuterol nebs [id number], and as needed albuterol HFA inhaler. He continues to smoke 1/2 pack/day, but is working on quitting. He has been working a lot outside, preparing for his granddaughters graduation democr[employer]. Over the weekend, he was having issues with progressively worsening shortness of breath, a persistent cough with minimal clear sputum production, chest tightness. Denies chest pain. He denies any fevers or recent sick contacts. Denies any nausea, vomiting, diarrhea. He was being treated outpatient with a prednisone burst taper, despite this, his breathing has progressively worsened. He called EMS early this morning, and was noted to be in some respiratory distress on arrival. In the emergency department, he was placed on BiPAP with settings 12/6 and an FiO2 of 40%. ABGs previously done on the settings show a PaO2 of 54, pCO2 of 53, pH of 7.34. Chest x-ray does not show any focal consolidations or evidence of pneumonia. There is hyperinflation consistent with COPD. CBC shows some leukocytosis, with WBC count of 17.1. CMP unremarkable. Troponins less than 0.012. NT proBNP 736. EKG reveals normal sinus rhythm and nondiagnostic for acute ischemia. Patient has just been transferred up to the selective care unit. No signs of CO2 narcosis. He remain s on the BiPAP with above-mentioned settings, achieving tidal volumes of 600 and respiratory rate is currently in the mid to high 20s. He is in some mild respiratory distress with conversational dyspnea and labored breathing. SpO2 is currently reading 97%. Afebrile. Remaining vital signs are stable. On today's evaluation 08/28/2023, the patient is feeling better. Less short of breath. The patient is off BiPAP. Communicating. No signs of any CO2 narcosis. No chest pain. Has a congested cough, unable to bring up much sputum. The white cell count of 15.4 with a hemoglobin 14.4 and platelet count of 172. BUN is 23 with a creatinine of 0.6 and a sodium levels of 138. 08/29/2023, the patient continues to be short of breath and is utilizing the BiPAP for respiratory support. The patient at the time of my evaluation was placed back on BiPAP at a pressure of 12 over 6 cm of water. He is tolerating the BiPAP reasonably well. No chest pain. No altered mentation. No hemoptysis or pleurisy. Remains on DuoNeb nebulized treatments [id number]. Remains on Perforomist and Pulmicort TWICE a day, empiric antibiotic coverage with Levaquin and he remains on IV Solu-Medrol. He remains on Lovenox for DVT prophylaxis. No new labs are available from today. A follow-up chest x-ray to be obtained for tomorrow. Otherwise, no new complaints. For , the patient is feeling better. The patient is currently off BiPAP at a 2 L of oxygen by nasal cannula. Noted on and off he still utilizing the BiPAP. Repeat chest x-ray was done today and showed some increase in interstiti al markings and the patient will be given also a dose of Lasix in addition. Electrolytes are all stable, sodium levels at 135, he remains on a combination of bronchodilators, steroids and is also on oral Levaquin for now. No signs of any CO2 narcosis. No chest pain. Objective - Vital Signs Vital signs: Vital Signs Temp 97.9 F 08/30/23 08:00 Pulse 76 08/30/23 11:38 Resp 18 08/30/23 08:00 BP 117/68 08/30/23 08:00 Pulse Ox 98 08/30/23 08:00 FiO2 40 08/29/23 09:23 Intake & Output 08/29/23 08/30/23 08/30/23 18:59 06:59 18:59 Intake Total 592 240 Balance 592 240 Intake: Oral 592 240 Other: Voiding Method Urinal Urinal # Voids 3 2 # Bowel Movements 1 - Exam GENERAL EXAM: Alert, 63-year-old white male,, comfortable on 2 L of oxygen by nasal cannula and is alternating between nasal cannula with BiPAP for respiratory support. HEAD: Normocephalic and atraumatic EYES: Normal reaction of pupils, equal size. NOSE: Clear with pink turbinates. THROAT: No erythema or exudates. NECK: No masses, no JVD. CHEST: No chest wall deformity. LUNGS: Equal air entry with markedly diminished lung sounds throughout. CVS: S1 and S2 distant with no audible murmur, regular rhythm. No extra heart sounds ABDOMEN: No hepatosplenomegaly, active bowel sounds, no guarding or rigidity. SPINE: No scoliosis or deformity SKIN: No rashes CENTRAL NERVOUS SYSTEM: No focal deficits, tone is normal in all 4 extremities. EXTREMITIES: There is no peripheral edema, clubbing, or cyanosis. Peripheral pulses are intact. - Labs CBC & Chem 7: 08/28/23 07:52 08/30/23 12:47 Assessment and Plan Assessment: Acute COPD exacerbation, failed outpatient treatment with prednisone burst taper. Clinically improving and the patient is currently still using the BiPAP for respiratory support and while off the BiPAP, the patient utilizing nasal cannula. Still short of breath, still bronchospastic and wheezy, not fully recovered from his underlying COPD exacerbation. Unable to liberate completely from BiPAP therapy for respiratory support. Acute hypoxemic and hypercapnic respiratory failure, secondary to above Acute leukocytosis Very severe chronic obstructive pulmonary disease, with an FEV1 22% of predicted, currently maintained on a combination of Trelegy inhaler, albuterol nebs [id number], and an as needed albuterol inhaler Chronic ongoing tobacco dependence, down to 1/2 pack/day History of hypertension Plan: Clinically improving and the patient is currently off the BiPAP. He is willing to continue using the BiPAP on and off during the day. Oxygen 2 L/min nasal cannula, the patient is alternate nasal cannula with BiPAP on and off for several hours during the day and continuously at nighttime. Continue DuoNebs flrsyq-qir-iuwud, budesonide inhalation, formoterol inhalation Continue IV Solu-Medrol Repeat chest x-ray in the morning was noted and the patient will be given dose of Lasix 40 mg IV Smoking cessation counseling performed. Nicotine replacement refused. Continue Levaquin 750 mg every 24 hours for the possibility of underlying bronchitis. The patient will be given Mucinex DM 2 tablets twice a day. Lovenox for DVT prophylaxis. Xanax 0.5 mg twice a day and as needed for increased anxiety. Discussed CODE STATUS with him. Remains full code for the time being.
--- NOTE | 2023-08-30 17:32 | P.PN ---
Subjective Progress Note Date: 08/30/23 Patient is a 63-year-old male with a past medical history of COPD/emphysema with FEV1 of 22% of predicted presents to ER with complaints of worsening shortness of breath for the past 1 to 2 days. Patient has been working outside and is exposed to pollen and cotton wood which made his breathing much worse. Patient was having cough with whitish to light yellow sputum production. She was also complaining of chest tightness. Denies any fever or chills. Denies any recent illnesses. No sick contacts. Patient was treated as an outpatient with prednisone burst taper despite this breathing is progressively getting worse which made him come to ER. Patient was tachycardic and tachypneic and requiring BiPAP on admission. ABG showed pH 7.34 pCO2 53 and pO2 54. EKG showed sinus tachycardia, chest x-ray showed no consolidation. Laboratory test showed WBC 17.1 hemoglobin 16.0 and platelets 185 sodium 139 potassium 4.7 chloride 107 bicarb is 28 BUN 15 and creatinine 0.63 and blood sugar 108 liver enzymes are not elevated troponin x 3 negative and proBNP 736. Influenza A B RSV and COVID-19 PCR not detected. Patient remains on BiPAP and is currently awake alert and oriented x 3. 08/28/2023 Patient is seen in follow-up today continues on IV steroids along with breathing treatments with pulmonary following closely. Patient used BiPAP last night and is maintained on 3 L. Patient does not wear oxygen outpatient. Patient is maintained on empiric antibiotics.. Patient continues with significant dyspnea on minimal exertion including moving around and repositioning in the bed. Patient is afebrile denies chest pain or palpitations. Patient reports to feeling better than when first arriving. Encouraged to increase activity as tolerated once respiratory status improves. 08/29/2023 Patient is seen in follow up today with pulmonary following intermittently using BiPAP and maintained on 3 L via nasal cannula. Patient reports he feels somewhat improved although continues to be extremely dyspneic on minimal exertion. Patient will continue on DuoNebs and IV steroids. Discussed with pat ient and family about increased activity and walking more frequently even if just in the room with extra tubing. Patient is getting up to take a shower today. Patient is afebrile with no reports of chest pain or palpitations. Patient does continue to report shortness of breath but feels improved since admission. No reported nausea or vomiting and patient is tolerating diet 08/30/2023 Patient is seen and evaluated in follow-up today continues to be using intermittent BiPAP along with 2 L via nasal cannula. Patient is extremely dyspneic with exertion and is continued on DuoNebs along with IV steroids and pulmonary following closely. Follow-up chest x-ray shows some congestion and was given a dose of IV Lasix. BNP within normal limits. Will follow-up on repeat labs and continue to monitor closely. Complete tobacco cessation has been counseled extensively. Patient is afebrile with no reports of chest pain or palpitations. Patient has been tolerating diet with no reported nausea or vomiting. Review of systems: Constitutional: No reports of fatigue, fever, or chills Cardiovascular: No reports of chest pain or palpitations Respiratory: reports of continued shortness of breath with minimal exertion, occasional cough with some phlegm GI: No reports of nausea, vomiting, or diarrhea : No reports of dysuria or retention Neurovascular: No reports of weakness or numbness All medications have been reviewed Physical exam: Patient is sitting up in the bed, maintained on 3 L via nasal cannula, awake alert and oriented x 3. Well-developed, ill-appearing, elderly appearing HEENT: Normocephalic. Neck is supple. Pupils reactive. Nostrils clear. Oral cavity is moist. Neck reveals no JVD, carotid bruits, or thyromegaly. CHEST EXAMINATION: Trachea is central. Symmetrical expansion. Bilateral diminished air entry and prolonged expiration. Minimal wheezing. No crackles. Improved aeration today CARDIAC: Normal S1, S2 with no gallops. No murmurs ABDOMEN: Soft. Bowel sounds normal. No organomegaly. No abdominal bruits. Extremities: reveal no edema. No clubbing or cyanosis Neurologically awake, alert, oriented x3 with well-coordinated movements. No focal deficits noted Skin: No rash or skin lesions. Psychiatric: Cooperative. Nonsuicidal, anxious. Musculoskeletal: No joint swelling or deformity. Normal range of motion. Assessment: Shortness of breath secondary to acute COPD exacerbation and failed outpatient prednisone burst taper. Acute hypoxic and hypercapnic respiratory failure requiring BiPAP on admission, currently on 3 L with intermittent BiPAP use Leukocytosis likely due to recent steroid use Severe COPD/emphysema with FEV1 of 22% of predicted. Ongoing nicotine addiction/smoking DVT prophylaxis with Lovenox subcu GI prophylaxis Full code Plan: Patient was continued on BiPAP and weaning, currently on 3 L via nasal cannula. Patient is continued on IV steroids along with vlipuj-[id number]-mkmfy breathing treatments and pulmonary following. Intermittently using BiPAP Patient will continue on antibiotics empirically in the form of Levaquin Encouraged to increase activity as tolerated once respiratory status improves, encouraged oral intake We will follow-up on repeat labs in the a.m. Replace electrolytes per protocol Due to multiple complex medical issues, prognosis is guarded The impression and plan of care has been dictated by Marva Klein, Nurse Practitioner as directed. Dr. Kenya MD I have performed a history and examination and MDM of this patient, discussed the same with the dictator, and agree with the dictator's assessment and plan as written ,documented as a scribe. Based on total visit time, I have performed more than 50% of the visit. Objective - Vital Signs Vital signs: Vital Signs Temp 97.9 F 08/30/23 08:00 Pulse 80 08/30/23 16:10 Resp 18 08/30/23 16:00 BP 120/67 08/30/23 16:00 Pulse Ox 95 08/30/23 16:00 FiO2 40 08/29/23 09:23 Intake & Output 08/29/23 08/30/23 08/30/23 18:59 06:59 18:59 Intake Total 592 240 Balance 592 240 Intake: Oral 592 240 Other: Voiding Method Urinal Urinal # Voids 3 2 # Bowel Movements 1 - Labs CBC & Chem 7: 08/28/23 07:52 08/30/23 12:47 Labs: Abnormal Lab Results - Last 24 Hours (Table) 08/30/23 Range/Units 12:47 Sodium 135 L (137-145) mmol/L Carbon Dioxide 36 H (22-30) mmol/L BUN 29 H (9-20) mg/dL Glucose 114 H (74-99) mg/dL
[2023-08-31 06:00] LABS: Glucose,Whole Blood 109 mg/dL (70-110)
--- NOTE | 2023-08-31 19:09 | P.PN ---
Subjective Progress Note Date: 08/31/23 Patient is a 63-year-old white male with past medical history significant for very severe COPD/emphysema. He recently moved to the area February,. He has recently started following in the pulmonary office with Dr. Cárdenas. PFT shows a severely reduced FEV1 22% of predicted, FEV1/FVC ratio of 33%, and DLCO of 31% not corrected for hemoglobin. He has been started on a combination of Trelegy inhaler, albuterol nebs [id number], and as needed albuterol HFA inhaler. He continues to smoke 1/2 pack/day, but is working on quitting. He has been working a lot outside, preparing for his granddaughters graduation alliance party. Over the weekend, he was having issues with progressively worsening shortness of breath, a persistent cough with minimal clear sputum production, chest tightness. Denies chest pain. He denies any fevers or recent sick contacts. Denies any nausea, vomiting, diarrhea. He was being treated outpatient with a prednisone burst taper, despite this, his breathing has progressively worsened. He called EMS early this morning, and was noted to be in some respiratory distress on arrival. In the emergency department, he was placed on BiPAP with settings 12/6 and an FiO2 of 40%. ABGs previously done on the settings show a PaO2 of 54, pCO2 of 53, pH of 7.34. Chest x-ray does not show any focal consolidations or evidence of pneumonia. There is hyperinflation consistent with COPD. CBC shows some leukocytosis, with WBC count of 17.1. CMP unremarkable. Troponins less than 0.012. NT proBNP 736. EKG reveals normal sinus rhythm and nondiagnostic for acute ischemia. Patient has just been transferred up to the selective care unit. No signs of CO2 narcosis. He remain s on the BiPAP with above-mentioned settings, achieving tidal volumes of 600 and respiratory rate is currently in the mid to high 20s. He is in some mild respiratory distress with conversational dyspnea and labored breathing. SpO2 is currently reading 97%. Afebrile. Remaining vital signs are stable. On today's evaluation 08/28/2023, the patient is feeling better. Less short of breath. The patient is off BiPAP. Communicating. No signs of any CO2 narcosis. No chest pain. Has a congested cough, unable to bring up much sputum. The white cell count of 15.4 with a hemoglobin 14.4 and platelet count of 172. BUN is 23 with a creatinine of 0.6 and a sodium levels of 138. 08/29/2023, the patient continues to be short of breath and is utilizing the BiPAP for respiratory support. The patient at the time of my evaluation was placed back on BiPAP at a pressure of 12 over 6 cm of water. He is tolerating the BiPAP reasonably well. No chest pain. No altered mentation. No hemoptysis or pleurisy. Remains on DuoNeb nebulized treatments [id number]. Remains on Perforomist and Pulmicort TWICE a day, empiric antibiotic coverage with Levaquin and he remains on IV Solu-Medrol. He remains on Lovenox for DVT prophylaxis. No new labs are available from today. A follow-up chest x-ray to be obtained for tomorrow. Otherwise, no new complaints. For , the patient is feeling better. The patient is currently off BiPAP at a 2 L of oxygen by nasal cannula. Noted on and off he still utilizing the BiPAP. Repeat chest x-ray was done today and showed some increase in interstiti al markings and the patient will be given also a dose of Lasix in addition. Electrolytes are all stable, sodium levels at 135, he remains on a combination of bronchodilators, steroids and is also on oral Levaquin for now. No signs of any CO2 narcosis. No chest pain. On today's evaluation of 08/31/2023, I am seeing the patient for a follow-up. The patient is feeling progressively improved. No specific complaints. On and off, the patient is still utilizing the BiPAP for respiratory support. No new complaints otherwise for now. The patient remains on the same bronchodilator regimen and the patient is on DuoNeb nebulized treatments [id number] and the patient remains on IV Solu-Medrol 60 mg every 6 hours. Repeat chest x-ray from yesterday shows no significant interval change and there is no evidence of any acute pulmonary filtrates. The patient remains on 3 L of oxygen by nasal cannula. The patient is ambulating. Objective - Vital Signs Vital signs: Vital Signs Temp 98.3 F 08/31/23 08:35 Pulse 70 08/31/23 09:19 Resp 20 08/31/23 08:35 BP 126/60 08/31/23 08:35 Pulse Ox 96 08/31/23 09:00 FiO2 40 08/31/23 03:12 Intake & Output 08/30/23 08/31/23 08/31/23 18:59 06:59 18:59 Intake Total 358 10 Output Total 300 Balance 358 10 -300 Intake: IV 10 Invasive Line 2 10 Oral 358 Output: Urine 300 Other: Voiding Method Toilet Toilet Urinal Urinal # Voids 2 - Exam GENERAL EXAM: Alert, 63-year-old white male,, comfortable on 2 L of oxygen by nasal cannula and is alternating between nasal cannula with BiPAP for respiratory support. HEAD: Normocephalic and atraumatic EYES: Normal reaction of pupils, equal size. NOSE: Clear with pink turbinates. THROAT: No erythema or exudates. NECK: No masses, no JVD. CHEST: No chest wall deformity. LUNGS: Equal air entry with markedly diminished lung sounds throughout. CVS: S1 and S2 distant with no audible murmur, regular rhythm. No extra heart sounds ABDOMEN: No hepatosplenomegaly, active bowel sounds, no guarding or rigidity. SPINE: No scoliosis or deformity SKIN: No rashes CENTRAL NERVOUS SYSTEM: No focal deficits, tone is normal in all 4 extremities. EXTREMITIES: There is no peripheral edema, clubbing, or cyanosis. Peripheral pulses are intact. - Labs CBC & Chem 7: 08/28/23 07:52 08/30/23 12:47 Labs: Abnormal Lab Results - Last 24 Hours (Table) 08/30/23 Range/Units 12:47 Sodium 135 L (137-145) mmol/L Carbon Dioxide 36 H (22-30) mmol/L BUN 29 H (9-20) mg/dL Glucose 114 H (74-99) mg/dL Assessment and Plan Assessment: Acute COPD exacerbation, failed outpatient treatment with prednisone burst taper. Clinically improving and the patient is currently still using the BiPAP for respiratory support and while off the BiPAP, the patient utilizing nasal cannula. Still short of breath, still bronchospastic and wheezy, not fully recovered from his underlying COPD exacerbation. Unable to liberate completely from BiPAP therapy for respiratory support. Acute hypoxemic and hypercapnic respiratory failure, secondary to above Acute leukocytosis Very severe chronic obstructive pulmonary disease, with an FEV1 22% of predicted, currently maintained on a combination of Trelegy inhaler, albuterol nebs [id number], and an as needed albuterol inhaler Chronic ongoing tobacco dependence, down to 1/2 pack/day History of hypertension Plan: Slow but ongoing improvement, will gradually increase level of activity and mobility. Will continue to lysing the BiPAP on and off during the day Oxygen 3 L/min nasal cannula Continue DuoNebs [id number]-[id number], budesonide inhalation, formoterol inhalation Continue IV Solu-Medrol Repeat chest x-ray showed no airspace disease and the patient was given a dose of Lasix yesterday Smoking cessation counseling performed. Nicotine replacement refused. Continue Levaquin 750 mg every 24 hours for the possibility of underlying br onchitis. Continue Mucinex DM 2 tablets twice a day. Lovenox for DVT prophylaxis. Xanax 0.5 mg twice a day and as needed for increased anxiety. Discussed CODE STATUS with him. Remains full code for the time being.
[2023-08-31 20:00] LABS: Glucose,Whole Blood 135 mg/dL (70-110)
[2023-08-31 22:02] LABS: Glucose,Whole Blood 131 mg/dL (70-110)
[2023-09-01 05:57] LABS: African American GFR (CKD) >90 (>60 ml/min/1.73 sqM); Anion Gap 1 mmol/L; Blood Urea Nitrogen 29 mg/dL (9-20); Carbon Dioxide 36 mmol/L (22-30); Chloride 96 mmol/L (98-107); Glucose 109 mg/dL (74-99); Non-African American GFR(CKD) >90 (>60 ml/min/1.73 sqM); Potassium 5.1 mmol/L (3.5-5.1); Sodium 133 mmol/L (137-145)
[2023-09-01 06:15] LABS: Basophils % (A) 0 %; Eosinophils % (A) 0 %; HCT 50.9 % (39.0-53.0); HGB 15.5 gm/dL (13.0-17.5); Lymphocytes # (A) 1.1 k/uL (1.0-4.8); Lymphocytes % (A) 7 %; MCH 29.9 pg (25.0-35.0); MCHC 30.5 g/dL (31.0-37.0); MCV 98.1 fL (80.0-100.0); Mean Platelet Volume 9.2; Monocytes # (A) 0.9 k/uL (0-1.0); Monocytes % (A) 6 %; Neutrophils # (A) 12.3 k/uL (1.3-7.7); Neutrophils % (A) 85 %; Platelet Count 181 k/uL (150-450); RBC 5.18 m/uL (4.30-5.90); RDW 13.2 % (11.5-15.5); WBC 14.4 k/uL (3.8-10.6)
[2023-09-01 07:27] LABS: Glucose,Whole Blood 100 mg/dL (70-110)
[2023-09-01 11:58] LABS: Glucose,Whole Blood 119 mg/dL (70-110)
--- NOTE | 2023-09-01 13:46 | P.PN ---
Subjective Progress Note Date: 09/01/23 Patient is a 63-year-old white male with past medical history significant for very severe COPD/emphysema. He recently moved to the area February,. He has recently started following in the pulmonary office with Dr. Cárdenas. PFT shows a severely reduced FEV1 22% of predicted, FEV1/FVC ratio of 33%, and DLCO of 31% not corrected for hemoglobin. He has been started on a combination of Trelegy inhaler, albuterol nebs [id number]-zwoqv, and as needed albuterol HFA inhaler. He continues to smoke 1/2 pack/day, but is working on quitting. He has been working a lot outside, preparing for his granddaughters graduation green party. Over the weekend, he was having issues with progressively worsening shortness of breath, a persistent cough with minimal clear sputum production, chest tightness. Denies chest pain. He denies any fevers or recent sick contacts. Denies any nausea, vomiting, diarrhea. He was being treated outpatient with a prednisone burst taper, despite this, his breathing has progressively worsened. He called EMS early this morning, and was noted to be in some respiratory distress on arrival. In the emergency department, he was placed on BiPAP with settings 12/6 and an FiO2 of 40%. ABGs previously done on the settings show a PaO2 of 54, pCO2 of 53, pH of 7.34. Chest x-ray does not show any focal consolidations or evidence of pneumonia. There is hyperinflation consistent with COPD. CBC shows some leukocytosis, with WBC count of 17.1. CMP unremarkable. Troponins less than 0.012. NT proBNP 736. EKG reveals normal sinus rhythm and nondiagnostic for acute ischemia. Patient has just been transferred up to the selective care unit. No signs of CO2 narcosis. He remain s on the BiPAP with above-mentioned settings, achieving tidal volumes of 600 and respiratory rate is currently in the mid to high 20s. He is in some mild respiratory distress with conversational dyspnea and labored breathing. SpO2 is currently reading 97%. Afebrile. Remaining vital signs are stable. On today's evaluation 08/28/2023, the patient is feeling better. Less short of breath. The patient is off BiPAP. Communicating. No signs of any CO2 narcosis. No chest pain. Has a congested cough, unable to bring up much sputum. The white cell count of 15.4 with a hemoglobin 14.4 and platelet count of 172. BUN is 23 with a creatinine of 0.6 and a sodium levels of 138. 08/29/2023, the patient continues to be short of breath and is utilizing the BiPAP for respiratory support. The patient at the time of my evaluation was placed back on BiPAP at a pressure of 12 over 6 cm of water. He is tolerating the BiPAP reasonably well. No chest pain. No altered mentation. No hemoptysis or pleurisy. Remains on DuoNeb nebulized treatments [id number]. Remains on Perforomist and Pulmicort TWICE a day, empiric antibiotic coverage with Levaquin and he remains on IV Solu-Medrol. He remains on Lovenox for DVT prophylaxis. No new labs are available from today. A follow-up chest x-ray to be obtained for tomorrow. Otherwise, no new complaints. For , the patient is feeling better. The patient is currently off BiPAP at a 2 L of oxygen by nasal cannula. Noted on and off he still utilizing the BiPAP. Repeat chest x-ray was done today and showed some increase in interstiti al markings and the patient will be given also a dose of Lasix in addition. Electrolytes are all stable, sodium levels at 135, he remains on a combination of bronchodilators, steroids and is also on oral Levaquin for now. No signs of any CO2 narcosis. No chest pain. On today's evaluation of 08/31/2023, I am seeing the patient for a follow-up. The patient is feeling progressively improved. No specific complaints. On and off, the patient is still utilizing the BiPAP for respiratory support. No new complaints otherwise for now. The patient remains on the same bronchodilator regimen and the patient is on DuoNeb nebulized treatments [id number] and the patient remains on IV Solu-Medrol 60 mg every 6 hours. Repeat chest x-ray from yesterday shows no significant interval change and there is no evidence of any acute pulmonary filtrates. The patient remains on 3 L of oxygen by nasal cannula. The patient is ambulating. 09/01/2023, the patient is being seen for a follow-up. The patient is currently on the medical floor. Breathing is nonlabored and the patient is currently on 3 L of oxygen by nasal cannula with a pulse ox of 95%. Remains on bronchodilators and steroids. Labs from today shows a white cell count of 14 with a heme of 15.5 and a BUN of 29 with a creatinine of 0.8 and sodium levels of 133. Objective - Vital Signs Vital signs: Vital Signs Temp 97.8 F 09/01/23 07:29 Pulse 80 09/01/23 11:20 Resp 19 09/01/23 07:29 BP 118/57 09/01/23 07:29 Pulse Ox 95 09/01/23 07:41 FiO2 40 09/01/23 03:02 Intake & Output 08/31/23 09/01/23 09/01/23 18:59 06:59 18:59 Output Total 300 Balance -300 Output: Urine 300 Other: Voiding Method Toilet Toilet Toilet Urinal Urinal Urinal # Voids 2 3 - Exam GENERAL EXAM: Alert, 63-year-old white male,, comfortable on 2 L of oxygen by nasal cannula and is alternating between nasal cannula with BiPAP for respiratory support. HEAD: Normocephalic and atraumatic EYES: Normal reaction of pupils, equal size. NOSE: Clear with pink turbinates. THROAT: No erythema or exudates. NECK: No masses, no JVD. CHEST: No chest wall deformity. LUNGS: Equal air entry with markedly diminished lung sounds throughout. CVS: S1 and S2 distant with no audible murmur, regular rhythm. No extra heart sounds ABDOMEN: No hepatosplenomegaly, active bowel sounds, no guarding or rigidity. SPINE: No scoliosis or deformity SKIN: No rashes CENTRAL NERVOUS SYSTEM: No focal deficits, tone is normal in all 4 extremities. EXTREMITIES: There is no peripheral edema, clubbing, or cyanosis. Peripheral pulses are intact. - Labs CBC & Chem 7: 09/01/23 04:58 09/01/23 04:58 Labs: Abnormal Lab Results - Last 24 Hours (Table) 08/31/23 08/31/23 09/01/23 Range/Units 19:59 22:01 04:58 WBC 14.4 H (3.8-10.6) k/uL MCHC 30.5 L (31.0-37.0) g/dL Neutrophils # 12.3 H (1.3-7.7) k/uL Sodium (137-145) mmol/L Chloride (98-107) mmol/L Carbon Dioxide (22-30) mmol/L BUN (9-20) mg/dL Glucose (74-99) mg/dL POC Glucose (mg/dL) 135 H 131 H (70-110) mg/dL 09/01/23 Range/Units 04:58 WBC (3.8-10.6) k/uL MCHC (31.0-37.0) g/dL Neutrophils # (1.3-7.7) k/uL Sodium 133 L (137-145) mmol/L Chloride 96 L (98-107) mmol/L Carbon Dioxide 36 H (22-30) mmol/L BUN 29 H (9-20) mg/dL Glucose 109 H (74-99) mg/dL POC Glucose (mg/dL) (70-110) mg/dL Assessment and Plan Assessment: Acute COPD exacerbation, failed outpatient treatment with prednisone burst taper. Clinically improving and the patient is currently still using the BiPAP for respiratory support and while off the BiPAP, the patient utilizing nasal cannula. Still short of breath, still bronchospastic and wheezy, not fully recovered from his underlying COPD exacerbation. Unable to liberate completely from BiPAP therapy for respiratory support. Acute hypoxemic and hypercapnic respiratory failure, secondary to above Acute leukocytosis Very severe chronic obstructive pulmonary disease, with an FEV1 22% of p redicted, currently maintained on a combination of Trelegy inhaler, albuterol nebs orvigv-far-vofxj, and an as needed albuterol inhaler Chronic ongoing tobacco dependence, down to 1/2 pack/day History of hypertension Plan: Will continue same management for now Slow but ongoing improvement, will gradually increase level of activity and mobility. Will continue to utilize the BiPAP on and off during the day Oxygen 3 L/min nasal cannula Continue DuoNebs [id number]-[id number], budesonide inhalation, formoterol inhalation Continue IV Solu-Medrol Repeat chest x-ray showed no airspace disease and the patient was given a dose of Lasix yesterday Smoking cessation counseling performed. Nicotine replacement refused. Continue Levaquin 750 mg every 24 hours for the possibility of underlying bronc hitis. Continue Mucinex DM 2 tablets twice a day. Lovenox for DVT prophylaxis. Xanax 0.5 mg twice a day and as needed for increased anxiety. Discussed CODE STATUS with him. Remains full code for the time being.
[2023-09-01 17:35] LABS: Glucose,Whole Blood 162 mg/dL (70-110)
[2023-09-01 20:39] LABS: Glucose,Whole Blood 151 mg/dL (70-110)
[2023-09-02 07:30] LABS: Glucose,Whole Blood 108 mg/dL (70-110)
[2023-09-02 08:22] LABS: Basophils % (A) 0 %; Eosinophils % (A) 0 %; HCT 46.2 % (39.0-53.0); HGB 14.3 gm/dL (13.0-17.5); Lymphocytes # (A) 1.1 k/uL (1.0-4.8); Lymphocytes % (A) 7 %; MCH 29.7 pg (25.0-35.0); MCHC 30.8 g/dL (31.0-37.0); MCV 96.4 fL (80.0-100.0); Mean Platelet Volume 9.8; Monocytes % (A) 7 %; Neutrophils # (A) 12.9 k/uL (1.3-7.7); Neutrophils % (A) 85 %; Platelet Count 195 k/uL (150-450); RBC 4.79 m/uL (4.30-5.90); RDW 13.3 % (11.5-15.5); WBC 15.2 k/uL (3.8-10.6)
[2023-09-02 08:32] LABS: African American GFR (CKD) >90 (>60 ml/min/1.73 sqM); Anion Gap -1 mmol/L; Blood Urea Nitrogen 28 mg/dL (9-20); Calcium 8.6 mg/dL (8.4-10.2); Carbon Dioxide 36 mmol/L (22-30); Chloride 96 mmol/L (98-107); Glucose 112 mg/dL (74-99); Non-African American GFR(CKD) >90 (>60 ml/min/1.73 sqM); Sodium 131 mmol/L (137-145)
--- NOTE | 2023-09-02 12:18 | P.PN ---
Subjective Progress Note Date: 08/31/23 Patient is a 63-year-old male with a past medical history of COPD/emphysema with FEV1 of 22% of predicted presents to ER with complaints of worsening shortness of breath for the past 1 to 2 days. Patient has been working outside and is exposed to pollen and cotton wood which made his breathing much worse. Patient was having cough with whitish to light yellow sputum production. She was also complaining of chest tightness. Denies any fever or chills. Denies any recent illnesses. No sick contacts. Patient was treated as an outpatient with prednisone burst taper despite this breathing is progressively getting worse which made him come to ER. Patient was tachycardic and tachypneic and requiring BiPAP on admission. ABG showed pH 7.34 pCO2 53 and pO2 54. EKG showed sinus tachycardia, chest x-ray showed no consolidation. Laboratory test showed WBC 17.1 hemoglobin 16.0 and platelets 185 sodium 139 potassium 4.7 chloride 107 bicarb is 28 BUN 15 and creatinine 0.63 and blood sugar 108 liver enzymes are not elevated troponin x 3 negative and proBNP 736. Influenza A B RSV and COVID-19 PCR not detected. Patient remains on BiPAP and is currently awake alert and oriented x 3. 08/28/2023 Patient is seen in follow-up today continues on IV steroids along with breathing treatments with pulmonary following closely. Patient used BiPAP last night and is maintained on 3 L. Patient does not wear oxygen outpatient. Patient is maintained on empiric antibiotics.. Patient continues with significant dyspnea on minimal exertion including moving around and repositioning in the bed. Patient is afebrile denies chest pain or palpitations. Patient reports to feeling better than when first arriving. Encouraged to increase activity as tolerated once respiratory status improves. 08/29/2023 Patient is seen in follow up today with pulmonary following intermittently using BiPAP and maintained on 3 L via nasal cannula. Patient reports he feels somewhat improved although continues to be extremely dyspneic on minimal exertion. Patient will continue on DuoNebs and IV steroids. Discussed with patient and family about increased activity and walking more frequently even if just in the room with extra tubing. Patient is getting up to take a shower today. Patient is afebrile with no reports of chest pain or palpitations. Patient does continue to report shortness of breath but feels improved since admission. No reported nausea or vomiting and patient is tolerating diet 08/30/2023 Patient is seen and evaluated in follow-up today continues to be using intermittent BiPAP along with 2 L via nasal cannula. Patient is extremely dyspneic with exertion and is continued on DuoNebs along with IV steroids and pulmonary following closely. Follow-up chest x-ray shows some congestion and was given a dose of IV Lasix. BNP within normal limits. Will follow-up on repeat labs and continue to monitor closely. Complete tobacco cessation has been counseled extensively. Patient is afebrile with no reports of chest pain or palpitations. Patient has been tolerating diet with no reported nausea or vomiting. 08/31/2023 Patient is in the medical floor. Awake alert and oriented x 3. Currently on 3 L oxygen via nasal cannula. Patient has been using BiPAP in the night and sometimes in the morning. States that his breathing is better. Still having exertional dyspnea. No complaints of fever or chills. No nausea vomiting abdominal pain or diarrhea. Patient is being continued on IV Solu-Medrol, DuoNebs and chest x-ray showed chronic changes without evidence for acute pulmonary disease. Laboratory data reviewed. Pulmonary is on board. Review of systems: Constitutional: No reports of fatigue, fever, or chills Cardiovascular: No reports of chest pain or palpitations Respiratory: reports of continued shortness of breath with minimal exertion, occasional cough with some phlegm GI: No reports of nausea, vomiting, or diarrhea : No reports of dysuria or retention Neurovascular: No reports of weakness or numbness All medications have been reviewed Physical exam: Patient is sitting up in the bed, maintained on 3 L via nasal cannula, awake alert and oriented x 3. Well-developed, ill-appearing, elderly appearing HEENT: Normocephalic. Neck is supple. Pupils reactive. Nostrils clear. Oral cavity is moist. Neck reveals no JVD, carotid bruits, or thyromegaly. CHEST EXAMINATION: Trachea is central. Symmetrical expansion. Bilateral diminished air entry and prolonged expiration. Minimal wheezing. No crackles. Improved aeration today CARDIAC: Normal S1, S2 with no gallops. No murmurs ABDOMEN: Soft. Bowel sounds normal. No organomegaly. No abdominal bruits. Extremities: reveal no edema. No clubbing or cyanosis Neurologically awake, alert, oriented x3 with well-coordinated movements. No focal deficits noted Skin: No rash or skin lesions. Psychiatric: Cooperative. Nonsuicidal, anxious. Musculoskeletal: No joint swelling or deformity. Normal range of motion. Assessment: Shortness of breath secondary to acute COPD exacerbation and failed outpatient prednisone burst taper. Acute hypoxic and hypercapnic respiratory failure requiring BiPAP on admission, currently on 3 L with intermittent BiPAP use Leukocytosis likely due to recent steroid use Severe COPD/emphysema with FEV1 of 22% of predicted. Ongoing nicotine addiction/smoking DVT prophylaxis with Lovenox subcu GI prophylaxis Full code Plan: Patient was continued on BiPAP and weaning, currently on 3 L via nasal cannula. Patient is continued on IV steroids along with [id number]-ejm-[id number] breathing treat ments and pulmonary following. Intermittently using BiPAP Patient will continue on antibiotics empirically in the form of Levaquin Encouraged to increase activity as tolerated once respiratory status improves, encouraged oral intake We will follow-up on repeat labs in the a.m. Replace electrolytes per protocol Due to multiple complex medical issues, prognosis is guarded Objective - Vital Signs Vital signs: Vital Signs Temp 98.7 F 08/31/23 19:43 Pulse 83 08/31/23 19:43 Resp 16 08/31/23 16:15 BP 127/67 08/31/23 19:43 Pulse Ox 97 08/31/23 19:43 FiO2 40 08/31/23 12:57 Intake & Output 08/31/23 08/31/23 09/01/23 06:59 18:59 06:59 Intake Total 10 Output Total 300 Balance 10 -300 Intake: IV 10 Invasive Line 2 10 Output: Urine 300 Other: Voiding Method Toilet Toilet Urinal Urinal # Voids 2 2 - Labs CBC & Chem 7: 09/02/23 07:07 09/02/23 07:07 Labs: Abnormal Lab Results - Last 24 Hours (Table) 08/31/23 Range/Units 19:59 POC Glucose (mg/dL) 135 H (70-110) mg/dL
--- NOTE | 2023-09-02 12:21 | P.PN ---
Subjective Progress Note Date: 09/01/23 Patient is a 63-year-old male with a past medical history of COPD/emphysema with FEV1 of 22% of predicted presents to ER with complaints of worsening shortness of breath for the past 1 to 2 days. Patient has been working outside and is exposed to pollen and cotton wood which made his breathing much worse. Patient was having cough with whitish to light yellow sputum production. She was also complaining of chest tightness. Denies any fever or chills. Denies any recent illnesses. No sick contacts. Patient was treated as an outpatient with prednisone burst taper despite this breathing is progressively getting worse which made him come to ER. Patient was tachycardic and tachypneic and requiring BiPAP on admission. ABG showed pH 7.34 pCO2 53 and pO2 54. EKG showed sinus tachycardia, chest x-ray showed no consolidation. Laboratory test showed WBC 17.1 hemoglobin 16.0 and platelets 185 sodium 139 potassium 4.7 chloride 107 bicarb is 28 BUN 15 and creatinine 0.63 and blood sugar 108 liver enzymes are not elevated troponin x 3 negative and proBNP 736. Influenza A B RSV and COVID-19 PCR not detected. Patient remains on BiPAP and is currently awake alert and oriented x 3. 08/28/2023 Patient is seen in follow-up today continues on IV steroids along with breathing treatments with pulmonary following closely. Patient used BiPAP last night and is maintained on 3 L. Patient does not wear oxygen outpatient. Patient is maintained on empiric antibiotics.. Patient continues with significant dyspnea on minimal exertion including moving around and repositioning in the bed. Patient is afebrile denies chest pain or palpitations. Patient reports to feeling better than when first arriving. Encouraged to increase activity as tolerated once respiratory status improves. 08/29/2023 Patient is seen in follow up today with pulmonary following intermittently using BiPAP and maintained on 3 L via nasal cannula. Patient reports he feels somewhat improved although continues to be extremely dyspneic on minimal exertion. Patient will continue on DuoNebs and IV steroids. Discussed with patient and family about increased activity and walking more frequently even if just in the room with extra tubing. Patient is getting up to take a shower today. Patient is afebrile with no reports of chest pain or palpitations. Patient does continue to report shortness of breath but feels improved since admission. No reported nausea or vomiting and patient is tolerating diet 08/30/2023 Patient is seen and evaluated in follow-up today continues to be using intermittent BiPAP along with 2 L via nasal cannula. Patient is extremely dyspneic with exertion and is continued on DuoNebs along with IV steroids and pulmonary following closely. Follow-up chest x-ray shows some congestion and was given a dose of IV Lasix. BNP within normal limits. Will follow-up on repeat labs and continue to monitor closely. Complete tobacco cessation has been counseled extensively. Patient is afebrile with no reports of chest pain or palpitations. Patient has been tolerating diet with no reported nausea or vomiting. 08/31/2023 Patient is in the medical floor. Awake alert and oriented x 3. Currently on 3 L oxygen via nasal cannula. Patient has been using BiPAP in the night and sometimes in the morning. States that his breathing is better. Still having exertional dyspnea. No complaints of fever or chills. No nausea vomiting abdominal pain or diarrhea. Patient is being continued on IV Solu-Medrol, DuoNebs and chest x-ray showed chronic changes without evidence for acute pulmonary disease. Laboratory data reviewed. Pulmonary is on board. 09/01/2023 Patient is resting in bed. Currently on BiPAP. No complaints of chest pain. Awake alert and oriented x 3. Afebrile. No nausea vomiting. Tolerating oral diet. Breathing status is improving slowly. Laboratory data showed WBC 14.4 hemoglobin 15.5 and platelets of 181 sodium 133 potassium 5.1 chloride 96 bicarb 36 BUN 29 creatinine 0.78 and blood sugar is 109 and calcium 9.0. Patient remains on IV Solu-Medrol and DuoNebs antibiotics in the form of Levaquin.. Patient may need home oxygen, evaluation to be done on Saturday. Review of systems: Constitutional: No reports of fatigue, fever, or chills Cardiovascular: No reports of chest pain or palpitations Respiratory: reports of continued shortness of breath with minimal exertion, occasional cough with some phlegm GI: No reports of nausea, vomiting, or diarrhea : No reports of dysuria or retention Neurovascular: No reports of weakness or numbness All medications have been reviewed Physical exam: Patient is sitting up in the bed, maintained on 3 L via nasal cannula, awake alert and oriented x 3. Well-developed, ill-appearing, elderly appearing HEENT: Normocephalic. Neck is supple. Pupils reactive. Nostrils clear. Oral cavity is moist. Neck reveals no JVD, carotid bruits, or thyromegaly. CHEST EXAMINATION: Trachea is central. Symmetrical expansion. Bilateral dim inished air entry and prolonged expiration. Minimal wheezing. No crackles. Improved aeration today CARDIAC: Normal S1, S2 with no gallops. No murmurs ABDOMEN: Soft. Bowel sounds normal. No organomegaly. No abdominal bruits. Extremities: reveal no edema. No clubbing or cyanosis Neurologically awake, alert, oriented x3 with well-coordinated movements. No focal deficits noted Skin: No rash or skin lesions. Psychiatric: Cooperative. Nonsuicidal, anxious. Musculoskeletal: No joint swelling or deformity. Normal range of motion. Assessment: Shortness of breath secondary to acute COPD exacerbation and failed outpatient prednisone burst taper. Acute hypoxic and hypercapnic respiratory failure requiring BiPAP on admission, currently on 3 L with intermittent BiPAP use Leukocytosis likely due to recent steroid use Severe COPD/emphysema with FEV1 of 22% of predicted. Ongoing nicotine addiction/smoking DVT prophylaxis with Lovenox subcu GI prophylaxis Full code Plan: Patient was continued on BiPAP and weaning, currently on 3 L via nasal cannula. Patient is continued on IV steroids along with [id number] breathing treatments and pulmonary following. Intermittently using BiPAP Patient will continue on antibiotics empirically in the form of Levaquin Encouraged to increase activity as tolerated once respiratory status improves, encouraged oral intake We will follow-up on repeat labs in the a.m. Replace electrolytes per protocol Due to multiple complex medical issues, prognosis is guarded Objective - Vital Signs Vital signs: Vital Signs Temp 97.8 F 09/01/23 07:29 Pulse 80 09/01/23 11:20 Resp 19 09/01/23 07:29 BP 118/57 09/01/23 07:29 Pulse Ox 95 09/01/23 07:41 FiO2 40 09/01/23 03:02 Intake & Output 08/31/23 09/01/23 09/01/23 18:59 06:59 18:59 Output Total 300 Balance -300 Output: Urine 300 Other: Voiding Method Toilet Toilet Toilet Urinal Urinal Urinal # Voids 2 3 - Labs CBC & Chem 7: 09/02/23 07:07 09/02/23 07:07 Labs: Abnormal Lab Results - Last 24 Hours (Table) 08/31/23 08/31/23 09/01/23 Range/Units 19:59 22:01 04:58 WBC 14.4 H (3.8-10.6) k/uL MCHC 30.5 L (31.0-37.0) g/dL Neutrophils # 12.3 H (1.3-7.7) k/uL Sodium (137-145) mmol/L Chloride (98-107) mmol/L Carbon Dioxide (22-30) mmol/L BUN (9-20) mg/dL Glucose (74-99) mg/dL POC Glucose (mg/dL) 135 H 131 H (70-110) mg/dL 09/01/23 Range/Units 04:58 WBC (3.8-10.6) k/uL MCHC (31.0-37.0) g/dL Neutrophils # (1.3-7.7) k/uL Sodium 133 L (137-145) mmol/L Chloride 96 L (98-107) mmol/L Carbon Dioxide 36 H (22-30) mmol/L BUN 29 H (9-20) mg/dL Glucose 109 H (74-99) mg/dL POC Glucose (mg/dL) (70-110) mg/dL
[2023-09-02 12:24] LABS: Glucose,Whole Blood 105 mg/dL (70-110)
--- NOTE | 2023-09-02 13:56 | P.PN ---
Subjective Progress Note Date: 09/02/23 Patient is a 63-year-old white male with past medical history significant for very severe COPD/emphysema. He recently moved to the area February,. He has recently started following in the pulmonary office with Dr. Cárdenas. PFT shows a severely reduced FEV1 22% of predicted, FEV1/FVC ratio of 33%, and DLCO of 31% not corrected for hemoglobin. He has been started on a combination of Trelegy inhaler, albuterol nebs [id number], and as needed albuterol HFA inhaler. He continues to smoke 1/2 pack/day, but is working on quitting. He has been working a lot outside, preparing for his granddaughters graduation green party. Over the weekend, he was having issues with progressively worsening shortness of breath, a persistent cough with minimal clear sputum production, chest tightness. Denies chest pain. He denies any fevers or recent sick contacts. Denies any nausea, vomiting, diarrhea. He was being treated outpatient with a prednisone burst taper, despite this, his breathing has progressively worsened. He called EMS early this morning, and was noted to be in some respiratory distress on arrival. In the emergency department, he was placed on BiPAP with settings 12/6 and an FiO2 of 40%. ABGs previously done on the settings show a PaO2 of 54, pCO2 of 53, pH of 7.34. Chest x-ray does not show any focal consolidations or evidence of pneumonia. There is hyperinflation consistent with COPD. CBC shows some leukocytosis, with WBC count of 17.1. CMP unremarkable. Troponins less than 0.012. NT proBNP 736. EKG reveals normal sinus rhythm and nondiagnostic for acute ischemia. Patient has just been transferred up to the selective care unit. No signs of CO2 narcosis. He remains on the BiPAP with above-mentioned settings, achieving tidal volumes of 600 and respiratory rate is currently in the mid to high 20s. He is in some mild respiratory distress with conversational dyspnea and labored breathing. SpO2 is currently reading 97%. Afebrile. Remaining vital signs are stable. On today's evaluation 08/28/2023, the patient is feeling better. Less short of breath. The patient is off BiPAP. Communicating. No signs of any CO2 narcosis. No chest pain. Has a congested cough, unable to bring up much sputum. The white cell count of 15.4 with a hemoglobin 14.4 and platelet count of 172. BUN is 23 with a creatinine of 0.6 and a sodium levels of 138. 08/29/2023, the patient continues to be short of breath and is utilizing the BiPAP for respiratory support. The patient at the time of my evaluation was placed back on BiPAP at a pressure of 12 over 6 cm of water. He is tolerating the BiPAP reasonably well. No chest pain. No altered mentation. No hemoptysis or pleurisy. Remains on DuoNeb nebulized treatments [id number]. Remains on Perforomist and Pulmicort TWICE a day, empiric antibiotic coverage with Levaquin and he remains on IV Solu-Medrol. He remains on Lovenox for DVT prophylaxis. No new labs are available from today. A follow-up chest x-ray to be obtained for tomorrow. Otherwise, no new complaints. For , the patient is feeling better. The patient is currently off BiPAP at a 2 L of oxygen by nasal cannula. Noted on and off he still utilizing the BiPAP. Repeat chest x-ray was done today and showed some increase in interstitial markings and the patient will be given also a dose of Lasix in addition. Electrolytes are all stable, sodium levels at 135, he remains on a combination of bronchodilators, steroids and is also on oral Levaquin for now. No signs of any CO2 narcosis. No chest pain. On today's evaluation of 08/31/2023, I am seeing the patient for a follow-up. The patient is feeling progressively improved. No specific complaints. On and off, the patient is still utilizing the BiPAP for respiratory support. No new complaints otherwise for now. The patient remains on the same bronchodilator regimen and the patient is on DuoNeb nebulized treatments [id number] and the patient remains on IV Solu-Medrol 60 mg every 6 hours. Repeat chest x-ray from yesterday shows no significant interval change and there is no evidence of any acute pulmonary filtrates. The patient remains on 3 L of oxygen by nasal cannula. The patient is ambulating. 09/01/2023, the patient is being seen for a follow-up. The patient is currently on the medical floor. Breathing is nonlabored and the patient is currently on 3 L of oxygen by nasal cannula with a pulse ox of 95%. Remains on bronchodilators and steroids. Labs from today shows a white cell count of 14 with a heme of 15.5 and a BUN of 29 with a creatinine of 0.8 and sodium levels of 133. The patient is seen today September 02, 2023 in follow-up on the regular medical floor. He is currently sitting up in bed. Awake and alert in no acute distress. Feeling a bit better today compared to yesterday. He is maintaining O2 saturations in the 90s on 3 L/min per nasal cannula. He does utilize BiPAP at times with settings of 12/6 and 35% FiO2. His FEV1 1 values 22% of predicted. He is continued on DuoNeb inhalations, Pulmicort and Perforomist inhalations, Solu-Medrol. Still with some dyspnea with exertion. White count 15.2. Hemoglobin 14.3. Platelets 195. Sodium 131. Potassium 5.0. Bicarb 36. BUN 28. Creatinine 0.67. Glucose 112. He remains on Lovenox for DVT prophylaxis. Antibiotics in the form of Levaquin. Objective - Vital Signs Vital signs: Vital Signs Temp 97.7 F 09/02/23 07:32 Pulse 84 09/02/23 11:56 Resp 18 09/02/23 07:32 BP 120/71 09/02/23 07:32 Pulse Ox 95 09/02/23 08:13 FiO2 35 09/02/23 03:19 Intake & Output 09/01/23 09/02/23 09/02/23 18:59 06:59 18:59 Intake Total 240 Balance 240 Intake: Oral 240 Other: Voiding Method Toilet Toilet Urinal Urinal # Voids 2 1 - Exam GENERAL EXAM: Alert, active, 63-year-old male, on 3 L nasal cannula, comfortable in no apparent distress. HEAD: Normocephalic. EYES: Normal reaction of pupils, equal size. NOSE: Clear with pink turbinates. THROAT: No erythema or exudates. NECK: No masses, no JVD. CHEST: No chest wall deformity. LUNGS: Equal air entry with bilateral end expiratory wheeze, diminished. CVS: S1 and S2 normal with no audible murmur, regular rhythm. ABDOMEN: No hepatosplenomegaly, normal bowel sounds, no guarding or rigidity. SPINE: No scoliosis or deformity SKIN: No rashes CENTRAL NERVOUS SYSTEM: No focal deficits, tone is normal in all 4 extremities. EXTREMITIES: There is no peripheral edema. No clubbing, no cyanosis. Peripheral pulses are intact. - Labs CBC & Chem 7: 09/02/23 07:07 09/02/23 07:07 Labs: Abnormal Lab Results - Last 24 Hours (Table) 09/01/23 09/01/23 09/02/23 Range/Units 17:29 20:36 07:07 WBC 15.2 H (3.8-10.6) k/uL MCHC 30.8 L (31.0-37.0) g/dL Neutrophils # 12.9 H (1.3-7.7) k/uL Sodium (137-145) mmol/L Chloride (98-107) mmol/L Carbon Dioxide (22-30) mmol/L BUN (9-20) mg/dL Glucose (74-99) mg/dL POC Glucose (mg/dL) 162 H 151 H (70-110) mg/dL 09/02/23 Range/Units 07:07 WBC (3.8-10.6) k/uL MCHC (31.0-37.0) g/dL Neutrophils # (1.3-7.7) k/uL Sodium 131 L (137-145) mmol/L Chloride 96 L (98-107) mmol/L Carbon Dioxide 36 H (22-30) mmol/L BUN 28 H (9-20) mg/dL Glucose 112 H (74-99) mg/dL POC Glucose (mg/dL) (70-110) mg/dL Assessment and Plan Assessment: Acute COPD exacerbation, failed outpatient treatment with prednisone burst taper. Clinically improving and the patient is currently still using the BiPAP for respiratory support and while off the BiPAP, the patient utilizing nasal cannula. Still short of breath, still bronchospastic and wheezy, not fully recovered from his underlying COPD exacerbation. Unable to liberate completely from BiPAP therapy for respiratory support. Acute hypoxemic and hypercapnic respiratory failure, secondary to above Acute leukocytosis Severe chronic obstructive pulmonary disease, with an FEV1 22% of predicted, currently maintained on Trelegy inhaler, albuterol nebs [id number], and an as needed albuterol inhaler Chronic ongoing tobacco dependence, down to 1/2 pack/day History of hypertension Plan: The patient was seen and evaluated Labs and medications reviewed Improved but not quite back to baseline May qualify for home oxygen Continue the current treatment plan Educated regarding complete smoking cessation We will continue to follow I have personally seen and examined the patient, performed the documentation and the assessment and plan as written. Number of minutes spent on the visit: 10.
[2023-09-02] MEDS: methylPREDNISolone SOD SUCCI 40 MG/ML 1 ML VIAL IV SCH (17:13)
[2023-09-02 17:23] LABS: Glucose,Whole Blood 121 mg/dL (70-110)
[2023-09-02 20:26] LABS: Glucose,Whole Blood 148 mg/dL (70-110)
--- NOTE | 2023-09-03 05:25 | P.PN ---
Subjective Progress Note Date: 09/02/23 Patient is a 63-year-old male with a past medical history of COPD/emphysema with FEV1 of 22% of predicted presents to ER with complaints of worsening shortness of breath for the past 1 to 2 days. Patient has been working outside and is exposed to pollen and cotton wood which made his breathing much worse. Patient was having cough with whitish to light yellow sputum production. She was also complaining of chest tightness. Denies any fever or chills. Denies any recent illnesses. No sick contacts. Patient was treated as an outpatient with prednisone burst taper despite this breathing is progressively getting worse which made him come to ER. Patient was tachycardic and tachypneic and requiring BiPAP on admission. ABG showed pH 7.34 pCO2 53 and pO2 54. EKG showed sinus tachycardia, chest x-ray showed no consolidation. Laboratory test showed WBC 17.1 hemoglobin 16.0 and platelets 185 sodium 139 potassium 4.7 chloride 107 bicarb is 28 BUN 15 and creatinine 0.63 and blood sugar 108 liver enzymes are not elevated troponin x 3 negative and proBNP 736. Influenza A B RSV and COVID-19 PCR not detected. Patient remains on BiPAP and is currently awake alert and oriented x 3. 08/28/2023 Patient is seen in follow-up today continues on IV steroids along with breathing treatments with pulmonary following closely. Patient used BiPAP last night and is maintained on 3 L. Patient does not wear oxygen outpatient. Patient is maintained on empiric antibiotics.. Patient continues with significant dyspnea on minimal exertion including moving around and repositioning in the bed. Patient is afebrile denies chest pain or palpitations. Patient reports to feeling better than when first arriving. Encouraged to increase activity as tolerated once respiratory status improves. 08/29/2023 Patient is seen in follow up today with pulmonary following intermittently using BiPAP and maintained on 3 L via nasal cannula. Patient reports he feels somewhat improved although continues to be extremely dyspneic on minimal exertion. Patient will continue on DuoNebs and IV steroids. Discussed with pat ient and family about increased activity and walking more frequently even if just in the room with extra tubing. Patient is getting up to take a shower today. Patient is afebrile with no reports of chest pain or palpitations. Patient does continue to report shortness of breath but feels improved since admission. No reported nausea or vomiting and patient is tolerating diet 08/30/2023 Patient is seen and evaluated in follow-up today continues to be using intermittent BiPAP along with 2 L via nasal cannula. Patient is extremely dyspneic with exertion and is continued on DuoNebs along with IV steroids and pulmonary following closely. Follow-up chest x-ray shows some congestion and was given a dose of IV Lasix. BNP within normal limits. Will follow-up on repeat labs and continue to monitor closely. Complete tobacco cessation has been counseled extensively. Patient is afebrile with no reports of chest pain or palpitations. Patient has been tolerating diet with no reported nausea or vomiting. 09/02/2023 Patient is seen in follow-up today maintained on [id number] DuoNebs along with IV steroids with pulmonary following closely. Patient continues on 3 L via nasal cannula as well as continued BiPAP use intermittently. Weaning as tolerated and will evaluate for home O2 as patient will likely need oxygen on discharge to manage COPD. Patient is afebrile with no reports of chest pain or palpitations. Patient reports improvement in shortness of breath continues to have dyspnea on exertion. Encouraged to increase walking and sitting up in the chair more often. Continue current regimen and follow-up on repeat labs. Review of systems: Constitutional: No reports of fatigue, fever, or chills Cardiovascular: No reports of chest pain or palpitations Respiratory: reports of continued shortness of breath with minimal exertion, occasional cough with some phlegm GI: No reports of nausea, vomiting, or diarrhea : No reports of dysuria or retention Neurovascular: No reports of weakness or numbness All medications have been reviewed Physical exam: Patient is sitting up in the bed, maintained on 3 L via nasal cannula, awake alert and oriented x 3. Well-developed, ill-appearing, elderly appearing, intermittently using BiPAP throughout the day and at night HEENT: Normocephalic. Neck is supple. Pupils reactive. Nostrils clear. Oral cavity is moist. Neck reveals no JVD, carotid bruits, or thyromegaly. CHEST EXAMINATION: Trachea is central. Symmetrical expansion. Bilateral diminished air entry and prolonged expiration. Minimal wheezing. No crackles. Improved aeration today CARDIAC: Normal S1, S2 with no gallops. No murmurs ABDOMEN: Soft. Bowel sounds normal. No organomegaly. No abdominal bruits. Extremities: reveal no edema. No clubbing or cyanosis Neurologically awake, alert, oriented x3 with well-coordinated movements. No focal deficits noted Skin: No rash or skin lesions. Psychiatric: Cooperative. Nonsuicidal, much less anxious. Musculoskeletal: No joint swelling or deformity. Normal range of motion. Assessment: Shortness of breath secondary to acute COPD exacerbation and failed outpatient prednisone burst taper. Acute hypoxic and hypercapnic respiratory failure requiring BiPAP on admission, currently on 3 L with intermittent BiPAP use Leukocytosis likely due to recent steroid use Severe COPD/emphysema with FEV1 of 22% of predicted. Ongoing nicotine addiction/smoking DVT prophylaxis with Lovenox subcu GI prophylaxis Full code Plan: Patient was continued on BiPAP and weaning, currently on 3 L via nasal cannula. Patient is continued on IV steroids along with ccabjy-zse-ywtfq breathing treatments and pulmonary following. Intermittently using BiPAP. Will transition to IV steroids 40 twice daily and will need a prednisone taper on discharge Patient will continue on antibiotics empirically in the form of Levaquin Encouraged to increase activity as tolerated once respiratory status improves, encouraged oral intake We will follow-up on repeat labs in the a.m. Replace electrolytes per protocol Due to multiple complex medical issues, prognosis is guarded Patient will likely need home O2 on discharge to manage COPD. Case management following and prescription was provided. Recommend home O2 evaluation prior to discharge. Will discuss with pulmonary regarding possible discharge planning in the next 24 to 48 hours The impression and plan of care has been dictated by Marva Klein Nurse Pract itioner as directed. Dr. Miller MD I have performed a history and examination and MDM of this patient, discussed the same with the dictator, and agree with the dictator's assessment and plan as written ,documented as a scribe. Based on total visit time, I have performed more than 50% of the visit. Objective - Vital Signs Vital signs: Vital Signs Temp 97.7 F 09/02/23 07:32 Pulse 76 09/02/23 08:31 Resp 18 09/02/23 07:32 BP 120/71 09/02/23 07:32 Pulse Ox 95 09/02/23 08:13 FiO2 35 09/02/23 03:19 Intake & Output 09/01/23 09/02/23 09/02/23 18:59 06:59 18:59 Intake Total 240 Balance 240 Intake: Oral 240 Other: Voiding Method Toilet Toilet Urinal Urinal # Voids 2 1 - Labs CBC & Chem 7: 09/02/23 07:07 09/02/23 07:07 Labs: Abnormal Lab Results - Last 24 Hours (Table) 09/01/23 09/01/23 09/01/23 Range/Units 11:57 17:29 20:36 WBC (3.8-10.6) k/uL MCHC (31.0-37.0) g/dL Neutrophils # (1.3-7.7) k/uL Sodium (137-145) mmol/L Chloride (98-107) mmol/L Carbon Dioxide (22-30) mmol/L BUN (9-20) mg/dL Glucose (74-99) mg/dL POC Glucose (mg/dL) 119 H 162 H 151 H (70-110) mg/dL 09/02/23 09/02/23 Range/Units 07:07 07:07 WBC 15.2 H (3.8-10.6) k/uL MCHC 30.8 L (31.0-37.0) g/dL Neutrophils # 12.9 H (1.3-7.7) k/uL Sodium 131 L (137-145) mmol/L Chloride 96 L (98-107) mmol/L Carbon Dioxide 36 H (22-30) mmol/L BUN 28 H (9-20) mg/dL Glucose 112 H (74-99) mg/dL POC Glucose (mg/dL) (70-110) mg/dL
[2023-09-03 07:20] LABS: Glucose,Whole Blood 103 mg/dL (70-110)
[2023-09-03 08:06] VITALS: RESP 16
[2023-09-03] MEDS: LEVOFLOXACIN 500 MG TAB PO SCH (08:52)
[2023-09-03 10:27] LABS: BUN/Creat Ratio 34.57 Ratio (12.00-20.00); Blood Urea Nitrogen 24.2 mg/dL (9.0-27.0); Calcium 8.5 mg/dL (8.7-10.3); Carbon Dioxide 32.2 mmol/L (21.6-31.8); Chloride 97 mmol/L (96-109); Glucose 106 mg/dL (70-110); Magnesium 2.3 mg/dL (1.5-2.4); Potassium 5.9 mmol/L (3.5-5.5); Sodium 136 mmol/L (135-145)
[2023-09-03 12:24] LABS: Glucose,Whole Blood 98 mg/dL (70-110)
--- NOTE | 2023-09-03 12:35 | P.PN ---
Subjective Progress Note Date: 09/03/23 Patient is a 63-year-old white male with past medical history significant for very severe COPD/emphysema. He recently moved to the area February,. He has recently started following in the pulmonary office with Dr. Cárdenas. PFT shows a severely reduced FEV1 22% of predicted, FEV1/FVC ratio of 33%, and DLCO of 31% not corrected for hemoglobin. He has been started on a combination of Trelegy inhaler, albuterol nebs [id number], and as needed albuterol HFA inhaler. He continues to smoke 1/2 pack/day, but is working on quitting. He has been working a lot outside, preparing for his granddaughters graduation green party. Over the weekend, he was having issues with progressively worsening shortness of breath, a persistent cough with minimal clear sputum production, chest tightness. Denies chest pain. He denies any fevers or recent sick contacts. Denies any nausea, vomiting, diarrhea. He was being treated outpatient with a prednisone burst taper, despite this, his breathing has progressively worsened. He called EMS early this morning, and was noted to be in some respiratory distress on arrival. In the emergency department, he was placed on BiPAP with settings 12/6 and an FiO2 of 40%. ABGs previously done on the settings show a PaO2 of 54, pCO2 of 53, pH of 7.34. Chest x-ray does not show any focal consolidations or evidence of pneumonia. There is hyperinflation consistent with COPD. CBC shows some leukocytosis, with WBC count of 17.1. CMP unremarkable. Troponins less than 0.012. NT proBNP 736. EKG reveals normal sinus rhythm and nondiagnostic for acute ischemia. Patient has just been transferred up to the selective care unit. No signs of CO2 narcosis. He remains on the BiPAP with above-mentioned settings, achieving tidal volumes of 600 and respiratory rate is currently in the mid to high 20s. He is in some mild respiratory distress with conversational dyspnea and labored breathing. SpO2 is currently reading 97%. Afebrile. Remaining vital signs are stable. On today's evaluation 08/28/2023, the patient is feeling better. Less short of breath. The patient is off BiPAP. Communicating. No signs of any CO2 narcosis. No chest pain. Has a congested cough, unable to bring up much sputum. The white cell count of 15.4 with a hemoglobin 14.4 and platelet count of 172. BUN is 23 with a creatinine of 0.6 and a sodium levels of 138. 08/29/2023, the patient continues to be short of breath and is utilizing the BiPAP for respiratory support. The patient at the time of my evaluation was placed back on BiPAP at a pressure of 12 over 6 cm of water. He is tolerating the BiPAP reasonably well. No chest pain. No altered mentation. No hemoptysis or pleurisy. Remains on DuoNeb nebulized treatments [id number]. Remains on Perforomist and Pulmicort TWICE a day, empiric antibiotic coverage with Levaquin and he remains on IV Solu-Medrol. He remains on Lovenox for DVT prophylaxis. No new labs are available from today. A follow-up chest x-ray to be obtained for tomorrow. Otherwise, no new complaints. For , the patient is feeling better. The patient is currently off BiPAP at a 2 L of oxygen by nasal cannula. Noted on and off he still utilizing the BiPAP. Repeat chest x-ray was done today and showed some increase in interstitial markings and the patient will be given also a dose of Lasix in addition. Electrolytes are all stable, sodium levels at 135, he remains on a combination of bronchodilators, steroids and is also on oral Levaquin for now. No signs of any CO2 narcosis. No chest pain. On today's evaluation of 08/31/2023, I am seeing the patient for a follow-up. The patient is feeling progressively improved. No specific complaints. On and off, the patient is still utilizing the BiPAP for respiratory support. No new complaints otherwise for now. The patient remains on the same bronchodilator regimen and the patient is on DuoNeb nebulized treatments [id number] and the patient remains on IV Solu-Medrol 60 mg every 6 hours. Repeat chest x-ray from yesterday shows no significant interval change and there is no evidence of any acute pulmonary filtrates. The patient remains on 3 L of oxygen by nasal cannula. The patient is ambulating. 09/01/2023, the patient is being seen for a follow-up. The patient is currently on the medical floor. Breathing is nonlabored and the patient is currently on 3 L of oxygen by nasal cannula with a pulse ox of 95%. Remains on bronchodilators and steroids. Labs from today shows a white cell count of 14 with a heme of 15.5 and a BUN of 29 with a creatinine of 0.8 and sodium levels of 133. The patient is seen today September 02, 2023 in follow-up on the regular medical floor. He is currently sitting up in bed. Awake and alert in no acute distress. Feeling a bit better today compared to yesterday. He is maintaining O2 saturations in the 90s on 3 L/min per nasal cannula. He does utilize BiPAP at times with settings of 12/6 and 35% FiO2. His FEV1 1 values 22% of predicted. He is continued on DuoNeb inhalations, Pulmicort and Perforomist inhalations, Solu-Medrol. Still with some dyspnea with exertion. White count 15.2. Hemoglobin 14.3. Platelets 195. Sodium 131. Potassium 5.0. Bicarb 36. BUN 28. Creatinine 0.67. Glucose 112. He remains on Lovenox for DVT prophylaxis. Antibiotics in the form of Levaquin. The patient is seen today September 03, 2023 in follow-up on the regular medical floor. He is currently awake and alert in no acute distress. Sitting up in bed. Maintaining O2 saturations in the 90s on room air. He did not require BiPAP support. He is feeling back to his baseline. He is continued on DuoNeb inhalations, Pulmicort and Perforomist inhalations, Solu-Medrol. Remains on antibiotics in the form of Levaquin. Sodium 136. Potassium 5.9. Bicarb 32. BUN 24. Creatinine 0.7. Glucose 106. Objective - Vital Signs Vital signs: Vital Signs Temp 97.2 F L 09/03/23 07:17 Pulse 88 09/03/23 08:55 Resp 16 09/03/23 07:17 BP 132/70 09/03/23 07:17 Pulse Ox 96 09/03/23 08:37 FiO2 35 09/03/23 03:35 Intake & Output 09/02/23 09/03/23 09/03/23 18:59 06:59 18:59 Intake Total 1999 Balance 1999 Intake: Oral 1999 Other: Voiding Method Toilet Urinal # Voids 1 - Exam GENERAL EXAM: Alert, 63-year-old male, on room air, comfortable in no apparent distress. HEAD: Normocephalic. EYES: Normal reaction of pupils, equal size. NOSE: Clear with pink turbinates. THROAT: No erythema or exudates. NECK: No masses, no JVD. CHEST: No chest wall deformity. LUNGS: Equal air entry with bilateral end expiratory wheeze, diminished. CVS: S1 and S2 normal with no audible murmur, regular rhythm. ABDOMEN: No hepatosplenomegaly, normal bowel sounds, no guarding or rigidity. SPINE: No scoliosis or deformity SKIN: No rashes CENTRAL NERVOUS SYSTEM: No focal deficits, tone is normal in all 4 extremities. EXTREMITIES: There is no peripheral edema. No clubbing, no cyanosis. Peripheral pulses are intact. - Labs CBC & Chem 7: 09/02/23 07:07 09/03/23 06:54 Labs: Abnormal Lab Results - Last 24 Hours (Table) 09/02/23 09/02/23 09/03/23 Range/Units 17:21 20:24 06:54 Potassium 5.9 H (3.5-5.5) mmol/L Carbon Dioxide 32.2 H (21.6-31.8) mmol/L BUN/Creatinine Ratio 34.57 H (12.00-20.00) Ratio POC Glucose (mg/dL) 121 H 148 H (70-110) mg/dL Calcium 8.5 L (8.7-10.3) mg/dL Assessment and Plan Assessment: Acute COPD exacerbation, failed outpatient treatment with prednisone burst taper. Clinically improving and the patient is currently room air Acute hypoxemic and hypercapnic respiratory failure, secondary to above Acute leukocytosis Severe chronic obstructive pulmonary disease, with an FEV1 22% of predicted, currently maintained on Trelegy inhaler, albuterol nebs [id number], and an as needed albuterol inhaler Chronic ongoing tobacco dependence, down to 1/2 pack/day History of hypertension Plan: The patient was seen and evaluated Labs and medications reviewed Cleared for discharge from the pulmonary standpoint Evaluate for possible home oxygen Continue a prednisone taper Continue his home Trelegy and albuterol Educated regarding complete smoking cessation Keep his appointment with Dr. Cárdenas on 09/18/2023 I have personally seen and examined the patient, performed the documentation and the assessment and plan as written. Number of minutes spent on the visit: 10.
[2023-09-03 13:05] VITALS: BP 118/63; TEMP 98.4
[2023-09-03 13:38] VITALS: BMI 19.4
--- NOTE | 2023-09-03 14:30 | P.PN ---
Progress Note - Text Progress Note Date: 09/03/23 The patient will require oxygen 3 L via nasal cannula on discharge to manage COPD. Prescription provided to case management.
[2023-09-03 15:27] VITALS: PULSE 80
[2023-09-03] MEDS: SODIUM ZIRCONIUM CYCLOSILICATE 10 GM PACKET PO ONE (15:56)
[2023-09-04] MEDS ORDERED: predniSONE 20 MG TAB PO SCH (09:00)
== END 2023-09-03 16:11 | disposition home or self-care (01) | DRG 189 ==
LOC: EC 01:20 → 3SCARD 03:22 → 5NMEDONC 08-31 21:39
PROVIDERS: ADMIT Hospitalist; ATTEND Hospitalist
PROC: 5A09357 Assistance with Respiratory Ventilation, Less than 24 Consecutive Hours, Continuous Positive Airway Pressure (ICD-10-PCS; principal; 2023-08-27)
DX: J96.01 Acute respiratory failure with hypoxia (principal); J44.1 Chronic obstructive pulmonary disease with (acute) exacerbation; J96.02 Acute respiratory failure with hypercapnia; D72.829 Elevated white blood cell count, unspecified; T38.0X5A Adverse effect of glucocorticoids and synthetic analogues, initial encounter; F17.210 Nicotine dependence, cigarettes, uncomplicated; J43.9 Emphysema, unspecified; I10 Essential (primary) hypertension; Z88.1 Allergy status to other antibiotic agents; Z79.899 Other long term (current) drug therapy; Z79.84 Long term (current) use of oral hypoglycemic drugs; Z71.6 Tobacco abuse counseling
CPT/HCPCS: 36415; 36600; 71045; 80048; 80053; 82805; 83605; 83735; 83880; 84484; 85025; 85610; 85730; 87636; 93005; 94640; 94660; 94760; 96365; 96366; 99291

== ENCOUNTER 2024-08-27 11:08 | Day surgery (SDC) | payer MEDICARE ==
[~2024-08-27 11:08] MED LIST: LACTATED RINGERS 1,000 ML IV SCH
[2024-08-27] MEDS: LACTATED RINGERS 1,000 ML IV SCH (11:49)
[2024-08-27] MEDS: IV FLUID CONTINUATION 1,000 ML IV ONE (11:49)
[2024-08-27] MEDS: LIDOCAINE 1% (10MG/ML) FOR IV START INTRADERMA STA (11:50)
[2024-08-27] MEDS: ATROPINE SULFATE 0.4 MG/ML 1 ML VIAL IM ONE (11:51)
[2024-08-27 12:02] VITALS: TEMP 98.1
[2024-08-27] MEDS ORDERED: LIDOCAINE 2% (PF) 20 MG/ML 5 ML VIAL ONE (12:35)
[2024-08-27] MEDS ORDERED: PROPOFOL 10 MG/ML 20 ML VIAL IV ONE (12:35)
[2024-08-27] MEDS: LIDOCAINE 2% INJ 20 MG/ML INTRATRACH ONE (12:38)
[2024-08-27 13:23] VITALS: BP 128/72; PULSE 89; RESP 18
--- NOTE | 2024-08-27 18:26 | PCN ---
PROCEDURE NOTE PROCEDURE PERFORMED: Bronchoscopy, airway examination, therapeutic lavage, BAL, right middle lobe. PREOPERATIVE DIAGNOSES: Severe chronic obstructive pulmonary disease, infectious bronchitis, pneumonia. POSTOPERATIVE DIAGNOSIS: Severe chronic obstructive pulmonary disease, infectious bronchitis, pneumonia. DESCRIPTION OF PROCEDURE: There was informed consent and universal timeout. The patient's procedure took place in [facility] room [facility]3. Anesthesia provided monitored anesthesia care. After the patient was adequately sedated and being fully monitored, the bronchoscope was inserted through the right nostril. It passed through the right nasopharynx into the oropharynx. The hypopharynx was identified and topicalized. The hypopharyngeal structures, including anterior commissure, true cords, false cords, arytenoids, piriform sinuses, right and left, vallecula, and epiglottis, all appeared normal. The glottic opening was topicalized with lidocaine. The bronchoscope was pushed through the glottic opening into the trachea. The trachea appeared normal in structure, although there were thick secretions noted throughout. They were suctioned with the aid of saline. The right and left mainstem were topicalized with lidocaine. Right upper lobe and its 3 segments, right middle lobe and its 2 segments, right lower lobe and its 5 segments, left upper lobe proper and its 2 segments, lingula and its 2 segments in the left lower lobe and its 4 segments all had similar findings of diffuse airway erythema and hyperemia. There were thick secretions noted throughout. There was no dominant mass or tumor. The secretions were suctioned without difficulty with the aid of saline. Next, a bronchoscope was wedged into the right middle lobe. We did a formal BAL. 30 mL of turbid fluid was recovered. There was no immediate complication. The patient tolerated the procedure well. The fluid will be sent for analysis including cytology and microbiology. The patient tolerated the procedure well and will be recovered by Anesthesia. MMODL / IJN: [id number] /
[2024-08-27 21:13] LABS: Appearance,BF Cloudy (Clear); RBC, Body Fluid 36 /UL (0-2000)
[2024-08-28 13:16] LABS: Nucleated Cells, Body Fluid 329 /UL
== END 2024-08-27 13:25 | disposition home or self-care (01) ==
LOC: ORWHC2ENDO 11:08
PROVIDERS: ATTEND Internal Medicine Critical Care Medicine
DX: J44.0 Chronic obstructive pulmonary disease with (acute) lower respiratory infection (principal); J18.9 Pneumonia, unspecified organism; I11.0 Hypertensive heart disease with heart failure; I50.9 Heart failure, unspecified; F17.200 Nicotine dependence, unspecified, uncomplicated; Z79.899 Other long term (current) drug therapy
CPT/HCPCS: 88108; 88305; 89050; 87070; 87205; 87116; 87102; 87206; 31624; J0461; J2704; J2003 ×2

== ENCOUNTER → 2024-09-21 | Outpatient (CLI) | payer MEDICARE ==
[2024-09-21 16:02] LABS: Basophils # (A) 0.06 X 10*3/uL (0.00-0.10); Basophils % (A) 0.8 %; Eosinophils # (A) 0.11 X 10*3/uL (0.04-0.35); Eosinophils % (A) 1.4 %; HCT 49.0 % (39.6-50.0); HGB 15.0 g/dL (13.0-17.0); Immature Grans, Automated 0.30 %; Lymphocytes # (A) 1.80 X 10*3/uL (0.90-5.00); Lymphocytes % (A) 23.5 %; MCH 30.0 pg (27.0-32.0); MCHC 30.6 g/dL (32.0-37.0); MCV 98.0 FL (80.0-97.0); Monocytes # (A) 0.62 X 10*3/uL (0.20-1.00); Monocytes % (A) 8.1 %; NRBC Per 100 WBC 0 X 10*3/uL (0.00-0.01); Neutrophils # (A) 5.04 X 10*3/uL (1.80-7.70); Neutrophils % (A) 65.9 %; Platelet Count 215 X 10*3/uL (140-440); RBC 5.00 X 10*6/uL (4.40-5.60); RDW 12.9 % (11.5-14.5); WBC 7.65 X 10*3/uL (4.50-10.00)
[2024-09-21 16:06] LABS: BUN/Creat Ratio 15.14 Ratio (12.00-20.00); Blood Urea Nitrogen 10.6 mg/dL (9.0-27.0); Chloride 98 mmol/L (96-109); Glucose 98 mg/dL (70-110); Potassium 4.5 mmol/L (3.5-5.5); Sodium 139 mmol/L (135-145)
[2024-09-21 16:07] LABS: ALT 23 U/L (10-49); AST 20 U/L (14-35); Albumin 4.4 g/dL (3.8-4.9); Albumin/Globulin Ratio 1.83 Ratio (1.60-3.17); Alkaline Phosphatase 92 U/L (41-126); Anion Gap 10.00 mmol/L (4.00-12.00); Calcium 9.5 mg/dL (8.7-10.3); Carbon Dioxide 31.0 mmol/L (21.6-31.8); Globulin 2.4 g/dL (1.6-3.3); Total Protein 6.8 g/dL (6.2-8.2); Vitamin B12 1196.0 pg/mL (200.0-944.0)
== END | disposition home or self-care (01) ==
LOC: LABWHC1 12:29
PROVIDERS: ATTEND Family Medicine
DX: E55.9 Vitamin D deficiency, unspecified (principal); J43.9 Emphysema, unspecified; J96.10 Chronic respiratory failure, unspecified whether with hypoxia or hypercapnia; F41.9 Anxiety disorder, unspecified; R63.4 Abnormal weight loss
CPT/HCPCS: 36415; 80053; 82306; 82607; 84443; 85025